=== PATIENT | female | born 1945 | race Caucasian/White ===

== ENCOUNTER → 2017-07-17 | Outpatient (CLI) | payer OTHER ==
--- NOTE | 2017-07-18 14:31 | MAMMOGRAPHY REPORT ---
BILATERAL DIGITAL SCREENING MAMMOGRAM WITH CAD: 07/17/2017 CLINICAL HISTORY: Routine screening. TECHNIQUE: Current study was also evaluated with a Computer Aided Detection (CAD) system. Bilateral CC and MLO views were obtained. COMPARISON: Comparison is made to exams dated: 07/15/2016 mammogram, 07/10/2015 mammogram, 07/06/2014 ma mmogram, 07/05/2013 mammogram, 01/05/2013 mammogram, and 06/30/2012 mammogram - [facility] er. BREAST COMPOSITION: There are scattered areas of fibroglandular density in both breasts. FINDINGS: No suspicious masses, calcifications, or areas of architectural distortion are noted in ei ther breast. There has been no significant interval change compared to prior exams. Fluctuating keith gn-appearing masses are again noted bilaterally, which are considered benign given the multiplicity a nd bilaterality and likely represent cysts, with cysts seen on prior ultrasound exams. IMPRESSION: ACR BI-RADS CATEGORY 2: BENIGN There is no mammographic evidence of malignancy. A 1 year screening mammogram is recommended. The pa tient will receive written notification of the results. Approximately 10% of breast cancers are not detected with mammography. A negative mammographic report should not delay biopsy if a clinically suggestive mass is present. Kathleen Neil M.D. ah/:07/17/2017 16:20:28 Mental Health Assistant: Teresa DE)(M), [facility] letter sent: Normal 1/2 BI-RADS Code: ACR BI-RADS Category 2: Benign
== END | disposition home or self-care (01) ==
LOC: C.MAMM 08:56
PROVIDERS: ATTEND Physician Assistant
DX: Z12.31 Encounter for screening mammogram for malignant neoplasm of breast (principal)

== ENCOUNTER → 2017-09-16 | Outpatient (CLI) | payer OTHER | END | disposition home or self-care (01) | LOC: C.MAMM 08:42 | PROVIDERS: ATTEND Physician Assistant | DX: E28.39 Other primary ovarian failure (principal); M85.80 Other specified disorders of bone density and structure, unspecified site ==

== ENCOUNTER → 2018-07-21 | Outpatient (CLI) | payer OTHER ==
--- NOTE | 2018-07-22 13:37 | MAMMOGRAPHY REPORT ---
BILATERAL DIGITAL SCREENING MAMMOGRAM TOMOSYNTHESIS WITH CAD: 07/21/2018 CLINICAL HISTORY: Routine screening. TECHNIQUE: The study was acquired using full field digital technology and interpreted from soft copy. Breast tomosynthesis in addition to standard 2D mammography was performed. Current study was also ev aluated with a Computer Aided Detection (CAD) system. COMPARISON: Comparison is made to exams dated: 07/17/2017 mammogram, 07/15/2016 mammogram, 07/10/2015 m ammogram, 07/06/2014 mammogram, 07/05/2013 mammogram, and 07/02/2012 ultrasound - [facility] ter. BREAST COMPOSITION: There are scattered areas of fibroglandular density in both breasts. FINDINGS: There is a stable faint grouping of punctate calcifications in the retroareolar posterior r ight breast, and fluctuating nodularity in the left upper outer quadrant. No suspicious spiculated or irregular mass, architectural distortion or cluster of new, suspicious microcalcifications is seen. IMPRESSION: ACR BI-RADS CATEGORY 1: NEGATIVE There is no mammographic evidence of malignancy. A 1 year screening mammogram is recommended.( 019) The patient will receive written notification of the results. Some breast cancers are not detected with mammography. A negative mammographic report should not mirella y biopsy if a clinically suggestive mass is present. Linn Jacob M.D. ay/:07/21/2018 15:06:18 Bench Assembler Battery: RT Hailey(R)(M), [facility] letter sent: Normal 1/2 BI-RADS Code: ACR BI-RADS Category 1: Negative
== END | disposition home or self-care (01) ==
LOC: C.MAMM 08:45
PROVIDERS: ATTEND Physician Assistant
DX: Z12.31 Encounter for screening mammogram for malignant neoplasm of breast (principal)

== ENCOUNTER 2022-05-30 06:20 | Observation (INO) ==
[2022-05-30] MEDS ORDERED: VANCOMYCIN HCL 1000MG/20ML VIAL ONE (07:05)
[2022-05-30] MEDS ORDERED: BUPIVACAINE 0.25% 30 ML VIAL ONE (07:05)
[2022-05-30] MEDS ORDERED: LIDOCAINE 1% LOCAL 20 ML VIAL ONE (07:05)
[2022-05-30] MEDS ORDERED: WATER, STERILE FOR INJ 10 ML VIAL ONE (07:05)
[2022-05-30] MEDS ORDERED: MIDAZOLAM HCL 5 MG/ML 1 ML VIAL ONE (07:30)
[2022-05-30] MEDS ORDERED: ceFAZolin 330 MG/ML 1 GM VIAL ONE (07:30)
[2022-05-30] MEDS ORDERED: fentaNYL citrate 100 MCG/2 ML VIAL ONE (07:30)
--- NOTE | 2022-05-30 08:15 | Pre Anesthesia Assessment ---
Date of Service May 30, 2022 Pre Sedation Assessment Vital Signs Temp Pulse Resp BP Pulse Ox 05/30/22 07:12 36.8 C 54 L 20 209/66 H 98 Cardiovascular + regular rhythm and + bradycardic Respiratory + respiratory effort normal Pre-Sedation Airway Assessment Smoking Status: Never smoker Hx Sleep Apnea: No Hx Difficult Intubation: No Short, Thick Neck: No Thyromental Distance: > or= 3.5 Finger Breadths Oral Cavity: + Dentures Mallampati Class: II ASA: ASA2 NPO Status Date of Last Intake of Fluids: 05/29/22 Time of Last Intake of Fluids: 19:00 Date of Last Intake of Solid Food: 05/29/22 Time of Last Intake of Solid Foods: 19:00 Procedure Planning Contraindications for Sedation: none Current Medications Reviewed: Yes Notes The planned sedation has been discussed with the patient. Informed Consent was obtained. I have identified the patient, determined the appropriateness of sedation and have assessed the patient immediately prior to the procedure. All medicine(s) and interventions are by my order.
--- NOTE | 2022-05-30 08:16 | History & Physical Bridge Note ---
Date of Service May 30, 2022 History & Physical Bridge Note I have examined the patient, reviewed the History & Physical and in the interval since the performance of the History & Physical I have noted the following changes of clinical significance: no changes noted
[2022-05-30] MEDS ORDERED: oxyCODONE HCL IR 5 MG TAB (IMMEDIATE RELEASE) PO PRN (09:33)
[2022-05-30] MEDS ORDERED: ACETAMINOPHEN 325 MG TAB PO PRN (09:33)
--- NOTE | 2022-05-30 09:33 | Electrophysiology Report ---
Date of Service May 30, 2022 Electrophysiology Procedure Electrophysiology Procedure Report Procedure performed: Implantation of dual-chamber permanent pacemaker with left bundle pacing lead Staff word processing operator: Ananda Kuhn MD Indication: The patient is a 76-year-old woman with a history of sick sinus syndrome. He has significant exercise intolerance and there was evidence of A-V dissociation on prior EKGs resulting in symptomatic bradycardia. He will be a good candidate for permanent pacemaker due to symptomatic nonreversible sinus node dysfunction. A dual-chamber device was selected as she is currently in sinus rhythm and wished to maintain AV synchrony. Procedure in detail: The patient was informed of the risks benefits and alternatives to the intended procedure and she wished to proceed. She was taken to the electrophysiology suite in a fasting state. A preoperative antibiotic had been administered. The patient was monitored electrocardiographically throughout today's procedure and conscious sedation was administered per protocol. The left upper pectoral area is prepped and draped in usual sterile fashion. This area was anesthetized using subcutaneous administration of a xylocaine solution. An incision was made at this site and carried down to the prepectoralis fascia using sharp dissection. Electrocautery was also employed for dissection as well as for hemostasis. A device pocket was fashioned tissues above the pectoralis muscle. Subsequent to this maneuver the left axillary vein was accessed using modified Seldinger technique. Sheath was placed over guidewire and used to advance a guiding catheter for mapping of the interventricular septum. Once an adequate site was found the septal pacing lead was advanced using active fixation. Adequate sensing and threshold parameters were obtained prior to removal of the guiding catheter and sheath. The proximal portion of lead was then sutured to the prepectoralis fascia using nonabsorbable suture. A second sheath was advanced over the remaining guidewire and used to facilitate passage of the right atrial lead to the right atrium under fluoroscopic guidance. Adequate sensing and threshold parameters were obtained prior to active fixation of this lead to the endocardial surface. The proximal portion of lead was then sutured the prepectoralis fascia using nonabsorbable suture. The device pocket was irrigated with antibiotic solution. The leads were then attached to the device. The device and leads were then placed in the pocket and pocket was closed in 3 layers of absorbable suture. Steri-Strips and sterile dressing were applied. The device was tested noninvasively prior to conclusion the procedure. The patient tolerated procedure well there no immediate complications. Equipment used: New pulse generator: Phytopathology Teacher [employer]. Model number: [id number] serial number [id number] Right atrial lead: Phytopathology Teacher Medtronic. Model number: [id number] serial number [id number] Right ventricular lead: Phytopathology Teacher Medtr[employer]. Model number: [id number] serial number [id number] Measured data: Right atrial lead: P waves measure 2.9 mV. Pacing threshold 0.25 V at 0.4 ms with a pacing impedance of 550 ohms Right ventricular lead: R waves measured 18 mV. Pacing threshold 0.7 V at 0.5 ms with a pacing impedance of 710 ohms Impression: Successful implantation of dual-chamber permanent pacemaker with left bundle pacing lead MN[employer] Electrophysiology codes Pacing Procedure 1: Pacin Insert/Replace Pacer A & V PG Moderate Sedation Codes Moderate Sedation Codes Procedure 1: Sedation/Anesthesia: 85177 Mod Sedation by the same physician;Init15 Min Child Age 5 & Up Procedure 2: Sedation/Anesthesia: 76008 Mod Sedation by the same physician; Ea [id number] Minutes
--- NOTE | 2022-05-30 09:33 | Post Anesthesia Assessment ---
Date of Service May 30, 2022 Post Sedation Assessment Vital Signs Temp Pulse Resp BP Pulse Ox 05/30/22 07:12 36.8 C 54 L 20 209/66 H 98 Recovery Score Activity: Moves 4 extremities Respiration: Deep Breath/Cough Circulation: +/-20% PreAnes Value Consciousness: Arouseable (by name) Oxygen Saturation: > 92% On Room Air Discharge Sedation Level of Care: Fast Track Phase II Post Sedation Plan On clinical assessment, the patient appears to have tolerated the sedation without complications. Patient is recovering as anticipated. Patient will continue to be monitored by nursing and may be discharged when sedation discharge criteria are met per below protocol. Upon Completions of procedure up to 15 minutes continue every 5 minute vital signs and the P.A.R. score; then discharge to a Phase I or Fast Track to Phase II per the following guidelines: * Discharge Patient to appropriate Phase II area if PAR is 8 or greater or return to pre- procedure baseline. The post - procedure orders will be as directed. * If PAR score is less than 8 or not return to pre-procedure baseline then patient will follow Phase I monitoring till PAR is reached for Phase II. The Phase I may be done in procedure room or may call to secure a Phase I area. * If naloxone or flumazenil are used for reversal, hold in Phase I for continued monitoring from when last reversal dose was given for a minimum of 60 minutes or longer pending the nurse and/or physician discretion of patient condition before discharge to Phase II. Please call the Sedation Physician to re-evaluate and complete post-note for discharge to Phase II area. Do NOT discharge from procedure sedation or Phase 1 until post- sedation evaluation note is complete by procedure /sedation MD Sedation Discharge Instructions to be given to the patient at discharge to home.
[2022-05-30] MEDS ORDERED: ceFAZolin 1000MG 1,000 MG/7.5 ML SYR IV ONE (17:00)
[2022-05-30] MEDS ORDERED: amLODIPine BESYLATE 5 MG TAB PO ONE (18:35)
[2022-05-31] MEDS ORDERED: LEVOTHYROXINE SODIUM 50 MCG TABLET PO SCH (06:30)
[2022-05-31] MEDS ORDERED: ASPIRIN 81 MG ECTAB PO SCH (09:00)
[2022-05-31] MEDS ORDERED: EZETIMIBE 10 MG TABLET PO SCH (09:00)
[2022-05-31] MEDS ORDERED: lisinopril 10 MG TAB PO SCH (09:00)
[2022-05-31] MEDS ORDERED: FENOFIBRATE NANOCRYSTALLIZED 48 MG TABLET PO SCH (09:00)
[2022-05-31] MEDS ORDERED: PANTOprazole 40 MG TAB PO SCH (09:00)
[2022-05-31] MEDS ORDERED: amLODIPine BESYLATE 5 MG TAB PO SCH (09:00)
[2022-05-31] MEDS ORDERED: OMEGA-3 (PURIFIED FISH OIL) 1 GM CAP PO SCH (09:00)
[2022-05-31] MEDS ORDERED: MELOXICAM 7.5 MG TAB PO SCH (09:00)
--- NOTE | 2022-05-31 10:05 | XRay Report ---
XR chest 2V PA/lateral HISTORY: 76 years-old Female pacemaker. r/o PTX. no lifting left arm status post placement of a left subclavian pacer COMPARISON: None TECHNIQUE: PA and lateral views of the chest FINDINGS: The cardiac silhouette is upper limits of normal in size. Left subclavian pacer. Atherosclerosis of t he aorta. There is no pneumothorax, pleural effusion, airspace consolidation or overt pulmonary edema . Degenerative changes of the shoulders and spine. Cholecystectomy. IMPRESSION: Status post placement of a left subclavian pacer. No postprocedural pneumothorax. ACT 112: Negative or not required by law. The above report was generated using voice recognition software. It may contain grammatical, syntax o r spelling errors. Electronically signed by: Mike Larson M.D. 05/31/2022 10:04 AM
== END 2022-05-31 11:50 | disposition home or self-care (01) ==
LOC: EP 06:20 → 2S 06:20

== ENCOUNTER 2023-09-30 11:16 | Inpatient (IN) ==
[2023-09-30] MEDS ORDERED: SODIUM CHLORIDE 0.9% 500 ML IV ONE (12:47)
--- NOTE | 2023-09-30 12:48 | Emergency Department Note ---
ED Visit Note Physician Evaluation Note: Patient was seen in conjunction with the midlevel provider. Please see the midlevel provider note for full details of the patient's visit. I have personally evaluated and examined this patient. Patient presented to the ED with blisters in the oral cavity as well as a petechial appearing rash to the bilateral lower extremities and upper back. This is in the setting of recently starting Bactrim. Lab work was obtained and patient has a platelet count of 0. Hemoglobin is normal. Patient has not had any active bleeding. 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 Patient was started on IV steroids and IVIG. Otology was consulted by the physician plastic surgery assistant in regards to the plan of the patient's care, allergy and immunology was also consulted as the patient has recently been on Bactrim there is suspicion for drug reaction. Patient remained stable while here in the ED, she was started on the aforementioned interventions and was admitted to the hospitalist service for further management. I agree with assessment and plan of XAVIER Carlton DO .
--- NOTE | 2023-09-30 12:54 | Emergency Department Note ---
History of Present Illness General Chief complaint: Edema To Extremity Stated complaint: SWOLLEN FOOT; BLISTERS IN MOUTH Time Seen by Provider: 09/30/23 12:14 History of Present Illness 78-year-old female with past medical history significant for dementia, hypertension, hyperlipidemia, hypothyroidism who presents to the emergency department accompanied by for evaluation of rash. Patient states she was seen by her PCP last week for left great toe pain and swelling. She had x- rays of the toe performed which were unremarkable. She was placed on Bactrim for presumed toenail infection and started on 09/23/2023. She states that her toe pain has started to improve but she is noticed a rash on her bilateral legs. She is not exactly sure when the rash started but it has been present for the last few days. It is not itchy or painful. She also notes blisters within her mouth. She denies difficulty with swallowing, pain with swallowing, shortness of breath, chest pain, fever/chills, nausea or vomiting. She has not noticed the rash anywhere else. She does not think she has ever been on Bactrim in the past. No known allergies. No recent insect bites. No other changes to medications or new medications other than the Bactrim. She has not taken anything for her symptoms Home Medications Medication Instructions Recorded Confirmed Type ezetimibe 10 mg tablet 10 mg PO HS 05/30/22 09/30/23 History levothyroxine 50 mcg tablet 50 mcg PO DAILYBB 05/30/22 09/30/23 History lisinopril 10 mg tablet 10 mg PO QAM 05/30/22 09/30/23 History meloxicam 7.5 mg tablet 7.5 mg PO QAM 05/30/22 09/30/23 History omeprazole 20 mg capsule,delayed 20 mg PO QAM 05/30/22 09/30/23 History release solifenacin 5 mg tablet 5 mg PO QAM 05/30/22 09/30/23 History donepezil 5 mg tablet 5 mg PO HS #30 tabs 01/03/23 09/30/23 Rx allopurinol 100 mg tablet 200 mg PO QAM 09/30/23 09/30/23 History amlodipine 10 mg tablet 10 mg PO QAM 09/30/23 09/30/23 History aspirin 81 mg tablet,delayed 81 mg PO QAM 09/30/23 09/30/23 History release cyanocobalamin (vitamin B-12) 1,000 mcg PO QAM 09/30/23 09/30/23 History 1,000 mcg tablet (Vitamin B-12) omega 4-[id number]-zwd-fish oil 1,200 mg 1 cap PO QAM 09/30/23 09/30/23 History (144 mg-216 mg) capsule (Fish Oil) Allergies Allergy/AdvReac Type Severity Reaction Status Date / Time sulfamethoxazole AdvReac Severe Rash Verified 09/30/23 16:17 [From Bactrim] trimethoprim [From Bactrim] AdvReac Severe Rash Verified 09/30/23 16:17 Past Med/Surg History Medical History H/O Mohs micrographic surgery for skin cancer Surgical History S/P cataract surgery S/P cholecystectomy S/P colonoscopy S/P hysterectomy Family History Father Cancer Hypertension Mother Cancer Hypertension Social History Smoking Status: Never smoker Hx Alcohol Use: Yes Hx Substance Use: No Preferred Language: Congolese Communication Ability: Effective Physician President Required: No Beliefs That Will Affect Care: None Current Living Situation: Spouse Feels Safe at Home: Yes Assistive Devices: None Physical Exam Vital Signs Vital Signs - 24 hr 09/30/23 11:21 09/30/23 13:50 Temperature 37.0 C Temperature Source Temporal Artery Scan Pulse Rate 77 Pulse Rate [Apical] 61 Pulse Strength [Apical] Normal Respiratory Rate 18 17 Respiratory Effort / Characteristics Non-Labored Spontaneous Respiratory Depth Normal Respiratory Pattern Regular Blood Pressure 155/106 H Blood Pressure [Left Arm] 127/95 Blood Pressure Mean 122 Blood Pressure Mean [Left Arm] 105 Pulse Oximetry 95 94 Oxygen Delivery Method Room Air Sepsis Recent Fever Within 48 Hours No Sepsis New/Unexplained Change in Mental Status N/A Sepsis Action Taken by Nursing No Action Required Constitutional: alert and oriented x3. no acute distress. nontoxic HEENT: normocephalic, atraumatic. normal conjunctiva.PERRLA. EOM's grossly intact. TMs pearly mccann without effusion. Hemorrhagic blisters involving the oral mucosa/gums and tongue. The posterior pharynx appears to be spared. Tonsils are nonenlarged without exudate. Neck: neck is supple, nontender. Respiratory: lungs are clear to auscultation without wheezes, rhonchi, or rales bilaterally. equal chest rise. normal respiratory effort, no accessory muscle use. Cardiovascular: normal heart sounds without murmur. regular rate and rhythm. GI: abdomen is soft, nontender. No palpable masses. No rebound tenderness or guarding. Skin: Petechial type rash to the bilateral lower legs as well as an erythematous macular rash of the torso. Arms appeared spared as well as the face. Hemorrhagic blisters as described above within the oral mucosa. No skin sloughing or blistering to the extremities/torso. No evidence for infection. MSK: Moves all 4 extremities spontaneously. No bony tenderness Peripheral vascular: extremities warm and well perfused with palpable pulses. Psych:appropriate mood and affect. Course Administered Medications Discontinued Medications Dexamethasone (Dexamethasone Sod Inj 4 Mg/Ml Vial) 40 mg IV NOW STA Stop: 09/30/23 13:58 Last Admin: 09/30/23 14:26 Dose: 40 mg Documented By: LORE Dextrose (Dextrose 50% 50 Ml Syringe) 50 ml IV NOW STA Stop: 09/30/23 14:42 Last Admin: 09/30/23 15:56 Dose: 50 ml Documented By: LORE Sodium Chloride (Nss) 500 mls @ 999 mls/hr IV .Q31M ONE Stop: 09/30/23 13:17 Last Admin: 09/30/23 13:09 Dose: 999 mls/hr Documented By: LORE Calcium Gluconate 1,000 mg/ (Sodium Chloride) 60 mls @ 240 mls/hr IV NOW ONE Stop: 09/30/23 14:55 Last Admin: 09/30/23 15:23 Dose: 240 mls/hr Documented By: LORE Insulin Human Regular 10 units (/ Syringe) 9.9 mls @ 3 mls/sec IV ONE STA Stop: 09/30/23 14:42 Last Admin: 09/30/23 15:56 Dose: 3 mls/sec Documented By: LORE Co-signed By: ASW Insulin Human Regular (Novolin-R Insulin Per Unit Charge) Confirm Administered Dose 10 units .ROUTE .STK-MED ONE Stop: 09/30/23 15:55 Last Admin: 09/30/23 16:00 Dose: Not Given Documented By: KMO Medical Decision Making Differential Diagnosis Contact dermatitis, viral exanthem, urticaria, allergic reaction, Gaona- Bhavik syndrome, toxic epidermal necrolysis, erythema multiforme, cellulitis, scabies, HSV, varicella, zoster, eczema, staph scalded skin syndrome, fungal infection, as well as other pathologies. Laboratory Data Attestation: I reviewed the patient's lab results. 09/30/23 13:00 09/30/23 13:00 Lab Results 09/30/23 09/30/23 09/30/23 Range/Units 13:00 13:00 13:10 WBC 5.69 (4.8-10.8) K/ul RBC 3.86 L (4.20-5.40) M/uL Hgb 12.3 (12.0-16.0) g/dl Hct 37.6 (37.0-47.0) % MCV 97.4 (80.0-100.0) fL MCH 31.9 (25.0-34.0) pg MCHC 32.7 (32.0-36.0) g/dL RDW Std Deviation 51.3 H (36.4-46.3) fL RDW Coeff of Alexandra 14.4 (11.5-14.5) % Plt Count 0 L* (130-400) K/uL Immature Gran % (Auto) 0.7 % Neut % (Auto) 73.4 % Lymph % (Auto) 16.2 % [place] % (Auto) 7.7 % Eos % (Auto) 1.6 % Baso % (Auto) 0.4 % Neut # (Auto) 4.18 (1.40-6.50) K/uL Lymph # (Auto) 0.92 L (1.20-3.40) K/uL [place] # (Auto) 0.44 (0.11-0.59) K/uL Eos # (Auto) 0.09 (0.00-0.50) K/uL Baso # (Auto) 0.02 (0.00-0.20) K/uL Immature Gran # (Auto) 0.04 (0.01-0.20) K/uL Platelet Estimate Signific. Decreased L (Normal) Peripher Smr Path Cons Sodium 134 L (136-145) mmol/L Potassium 6.2 H* (3.5-5.1) mmol/L Chloride 103 (98-107) mmol/L Carbon Dioxide 24 (21-32) mmol/L Anion Gap 7 (3-11) BUN 28 H (6-23) mg/dl Creatinine 1.72 H (0.6-1.2) mg/dl Est Cr Clr Drug Dosing 23.4 ml/min Est GFR ( Amer) 32.0 ml/min Est GFR (Non-Af Amer) 27.6 ml/min BUN/Creatinine Ratio 16.3 (10-20) Glucose 101 H (70-99(Fasting)) mg/dl Calcium 9.3 (8.6-10.3) mg/dl Total Bilirubin 0.4 (0.2-1.0) mg/dl AST 26 (13-39) U/L ALT 22 (7-52) U/L Alkaline Phosphatase 96 (34-104) U/L Lactate Dehydrogenase 183 (86-244) U/L Total Protein 7.4 (6.0-8.3) gm/dl Albumin 4.3 (3.4-5.0) gm/dl Globulin 3.1 (2.5-4.0) gm/dl Albumin/Globulin Ratio 1.4 (0.9-2) Vitamin B12 (180-914) pg/ml Folate (>5.38) ng/ml Urine Color Yellow Urine Appearance Turbid A (Clear) Urine pH 5.5 (4.5-7.5) Ur Specific [place] 1.015 (1.000-1.030) Urine Protein Negative (Negative) Urine Glucose (UA) Negative (Negative) Urine Ketones Negative (Negative) Urine Blood 2+ H (Negative) Urine Nitrite Negative (Negative) Urine Bilirubin Negative (Negative) Urine Urobilinogen Negative (Negative) Ur Leukocyte Esterase Negative (Negative) Urine WBC (Auto) 1-5 (0-5) /hpf Urine RBC (Auto) 5-10 H (0-4) /hpf U Hyaline Cast (Auto) 1-5 (0-5) /lpf U Epithel Cells (Auto) >30 H (0-5) /lpf Urine Bacteria (Auto) Negative (Negative) 09/30/23 Range/Units 14:45 WBC (4.8-10.8) K/ul RBC (4.20-5.40) M/uL Hgb (12.0-16.0) g/dl Hct (37.0-47.0) % MCV (80.0-100.0) fL MCH (25.0-34.0) pg MCHC (32.0-36.0) g/dL RDW Std Deviation (36.4-46.3) fL RDW Coeff of Alexandra (11.5-14.5) % Plt Count (130-400) K/uL Immature Gran % (Auto) % Neut % (Auto) % Lymph % (Auto) % [place] % (Auto) % Eos % (Auto) % Baso % (Auto) % Neut # (Auto) (1.40-6.50) K/uL Lymph # (Auto) (1.20-3.40) K/uL [place] # (Auto) (0.11-0.59) K/uL Eos # (Auto) (0.00-0.50) K/uL Baso # (Auto) (0.00-0.20) K/uL Immature Gran # (Auto) (0.01-0.20) K/uL Platelet Estimate (Normal) Peripher Smr Path Cons Sodium (136-145) mmol/L Potassium (3.5-5.1) mmol/L Chloride (98-107) mmol/L Carbon Dioxide (21-32) mmol/L Anion Gap (3-11) BUN (6-23) mg/dl Creatinine (0.6-1.2) mg/dl Est Cr Clr Drug Dosing ml/min Est GFR ( Amer) ml/min Est GFR (Non-Af Amer) ml/min BUN/Creatinine Ratio (10-20) Glucose (70-99(Fasting)) mg/dl Calcium (8.6-10.3) mg/dl Total Bilirubin (0.2-1.0) mg/dl AST (13-39) U/L ALT (7-52) U/L Alkaline Phosphatase (34-104) U/L Lactate Dehydrogenase (86-244) U/L Total Protein (6.0-8.3) gm/dl Albumin (3.4-5.0) gm/dl Globulin (2.5-4.0) gm/dl Albumin/Globulin Ratio (0.9-2) Vitamin B12 > 1500 H (180-914) pg/ml Folate 9.93 (>5.38) ng/ml Urine Color Urine Appearance (Clear) Urine pH (4.5-7.5) Ur Specific [place] (1.000-1.030) Urine Protein (Negative) Urine Glucose (UA) (Negative) Urine Ketones (Negative) Urine Blood (Negative) Urine Nitrite (Negative) Urine Bilirubin (Negative) Urine Urobilinogen (Negative) Ur Leukocyte Esterase (Negative) Urine WBC (Auto) (0-5) /hpf Urine RBC (Auto) (0-4) /hpf U Hyaline Cast (Auto) (0-5) /lpf U Epithel Cells (Auto) (0-5) /lpf Urine Bacteria (Auto) (Negative) MDM Narrative 78-year-old female who presents to the emergency department for evaluation of rash and blisters in her mouth. Review of pertinent visits and past medical h istory performed. Vital signs in ED stable, afebrile. Patient was seen and evaluated as above. She was started on Bactrim on 09/23 for presumed toe infection by her PCP. She notes developing a rash in her lower legs as well as blisters within her mouth over the last few days. She is a relatively poor historian with her history of dementia and is unsure exactly when the rash developed. There is no pruritus or pain associated with the rash. On exam, she is well-appearing in no acute distress. Lower legs demonstrate a diffuse petechial rash without evidence for infection or skin sloughing. There is an erythematous macular rash involving the torso as well. Within the oral mucosa there are multiple hemorrhagic blisters involving the gums and tongue. The posterior pharynx does appear to be spared. She is in no acute respiratory distress and maintaining normal O2 saturations on room air. No evidence for angioedema. No exam findings to demonstrate secondary bacterial infection. Given presentation and concerns for Angel Bhavik syndrome, IV access was established and basic labs were obtained. CBC demonstrates no leukocytosis or acute anemia. She does have severe thrombocytopenia with a platelet count of 0. No bandemia. CMP demonstrates a sodium of 134 and a potassium of 6.2. No other electrolyte abnormalities. Renal function appears at baseline at 1.72. LFTs within normal limits. EKG demonstrates atrial paced sinus rhythm without evidence of ischemic changes. I did discuss the case with ED attending, Dr. Noel. 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 Medina. He of course recommended discontinuation of Bactrim and supportive care for SJS as well as admission to the hospital for close observation. If she were to demonstrate eosinophilia on her labs steroids would be beneficial however without this they would likely be of no benefit. She will need close monitoring of her kidney and liver function and if these were to worsen she may require transfer to a tertiary center. Pr esentation at this time is not concerning for TENS. Dr. Medina will be happy to see patient in consultation. I did also discuss the case with hematology/oncology, Dr. Guzmán for concerns of idiopathic thrombocytopenia likely drug-induced. He recommended high-dose Decadron 40 mg IV for 4 days in conjunction with the PPI for GI protection. In addition, he advised 1 g/kg IVIG infused over a 10 to 12-hour period with monitor of platelet response. He will also see patient in consultation. He did recommend obtaining hepatitis/HIV panel to rule out secondary causes of thrombocytopenia. HIV testing consent form was obtained. Labs were sent. Additionally folic acid and vitamin B12 levels were obtained and a peripheral smear at his request. Patient was reassessed on multiple occasions throughout the ED stay. She remained stable with no new concerns. She was hydrated with 500 mL IV fluids as well as given her first dose of IV 40 mg Decadron and IVIG in the emergency department. She declined needing anything for pain or nausea. She was updated on all exam findings and test results as well as recommendations from allergy/immunology and hematology/oncology. 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 Case was discussed with hospitalist physician laboratory chemical assistant, Merrlil Burt PA-C, who graciously excepted patient to their service for further management. Patient was admitted in stable condition. Impression & Plan Acute idiopathic thrombocytopenic purpura, LEROY (acute kidney injury), Acute hyperkalemia Discharge Plan Visit Data Chief Complaint: Edema To Extremity Stated Complaint: SWOLLEN FOOT; BLISTERS IN MOUTH ED Provider: Maninder Noel ED Midlevel Provider: Virginie Neal Discharge Problem: Acute idiopathic thrombocytopenic purpura, LEROY (acute kidney injury), Acute hyp erkalemia Patient Disposition: Admitted As Inpatient Discharge Instructions Interventions: ED Discharge Assessment Last Done: 09/30/23 15:49
[2023-09-30 13:32] LABS: Appearance Urine Turbid (Clear); Bacteria Urine Automated Negative (Negative); Bilirubin Urine Negative (Negative); Blood Urine 2+ (Negative); Color Urine Yellow; Epithelial Cell Urine Auto >30 /lpf (0-5); Glucose Urine UA Negative (Negative); Ketones Urine Negative (Negative); Leukocyte Esterase Urine Negative (Negative); Nitrite Urine Negative (Negative); Protein Urine Negative (Negative); Specific Gravity Urine 1.015 (1.000-1.030); Urobilinogen Urine Negative (Negative); pH Urine 5.5 (4.5-7.5)
[2023-09-30 13:38] LABS: Albumin Globulin Ratio 1.4 (0.9-2); Albumin Level 4.3 gm/dl (3.4-5.0); BUN Creatinine Ratio 16.3 (10-20); Bilirubin,Total 0.4 mg/dl (0.2-1.0); Calcium 9.3 mg/dl (8.6-10.3); Creatinine Clr Calc Pharmacy 23.4 ml/min; Est GFR (Non-African American) 27.6 ml/min; Globulin 3.1 gm/dl (2.5-4.0); Potassium 6.2 mmol/L (3.5-5.1); Total Protein 7.4 gm/dl (6.0-8.3)
[2023-09-30 13:51] LABS: Hematocrit (blood only) 37.6 % (37.0-47.0); Hemoglobin 12.3 g/dl (12.0-16.0); Mean Corpuscular Hemoglobin 31.9 pg (25.0-34.0); Mean Corpuscular Hgb Conc 32.7 g/dL (32.0-36.0); Mean Corpuscular Volume 97.4 fL (80.0-100.0); Platelet Count 0 K/uL (130-400); RDW Coefficient of Variation 14.4 % (11.5-14.5); RDW Standard Deviation 51.3 fL (36.4-46.3); Red Blood Count 3.86 M/uL (4.20-5.40); White Blood Count 5.69 K/ul (4.8-10.8)
[2023-09-30 13:52] LABS: Basophils # (auto) 0.02 K/uL (0.00-0.20); Basophils % (auto) 0.4 %; Eosinophils # (auto) 0.09 K/uL (0.00-0.50); Eosinophils % (auto) 1.6 %; Immature Granulocytes # (auto) 0.04 K/uL (0.01-0.20); Immature Granulocytes % (auto) 0.7 %; Lymphocytes # (auto) 0.92 K/uL (1.20-3.40); Lymphocytes % (auto) 16.2 %; Monocytes # (auto) 0.44 K/uL (0.11-0.59); Monocytes % (auto) 7.7 %; Neutrophils # (auto) 4.18 K/uL (1.40-6.50); Neutrophils % (auto) 73.4 %; Platelet Estimate Signific. Decreased (Normal)
[2023-09-30] MEDS ORDERED: DEXAMETHASONE SOD INJ 4 MG/ML VIAL IV STA (13:57)
[2023-09-30] MEDS ORDERED: IMMUNE GLOBULIN (HUMAN) SOLN IV ONE (14:18)
[2023-09-30] MEDS ORDERED: GAMUNEX C IV SCH ×2 (14:30→15:30)
[2023-09-30] MEDS ORDERED: INSULIN HUMAN REGULAR PER UNIT 10 UNITS in SYRINGE 9.9 ML IV STA (14:41)
[2023-09-30] MEDS ORDERED: CALCIUM GLUCONATE 10% 1,000 MG in SODIUM CHLOR 0.9% MINI-B 50 ML IV ONE (14:41)
[2023-09-30] MEDS ORDERED: DEXTROSE 50% 50 ML SYRINGE IV STA (14:41)
[2023-09-30] MEDS ORDERED: STAT IV/IM STA (14:41)
--- NOTE | 2023-09-30 14:47 | History & Physical Report ---
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 Less likely at this time that the Bactrim as the cause at this time as she is without a rash -Cannot rule out SJS at this time as she has mucosal involvement, but lower on the differential for now -She is currently stable and without signs of acute bleeding -The ED has started the following treatments as recommended by allergy immunology and hematology: >40 mg IV dexamethasone daily for 5 days, then can convert to PO glucocorticoids >Will start IVIG per Pharmacy protocol which will run over 6 hours >Start daily Protonix to reduce risk of gastric ulcers >Will give empiric Folic Acid and B12 on admission, folate and B12 levels have been obtained in the ED >Repeat labs after IVIG is complete tonight to monitor for response >Hematology will review am labs to determine if additional IVIG will be needed -Hold any transfusions at this time -Hold all anticoagulants/antiplatelets until hematology recommends restarting; holding home aspirin at this time -Will obtain blood consent with type and screen for now -Will obtain STAT PT/INT, aptt, and LDH -Monitor intake/output q6h -Prn magic swizzle for mouth pain -Will monitor am CBC, CMP, Mag, PT/INR, aptt, LDH (2) Hyperkalemia: Plan: -Potassium elevated at 6.2 on arrival -No acute T-wave changes -Likely due to her LEROY but will monitor PT/INR, aptt, and LDH for signs of hemolysis -Given 1gm IV calcium gluconate, 10 units IV insulin, and am amp of dextrose on admission -Given 500 mL NSS in the ED -Continue to monitor on tele, will follow 4 hour repeat potassium at 1700, if still elevated will add an oral regimen (3) Toe infection: Plan: -Patient with left great toe infection since 09/21 -Was seen by PCP on 09/23, xray at that time was negative for osseous involvement -Started on Bactrim on 09/23; hold -Will obtain Repeat xray to rule out progression to osseous involvement -Will switch her to ceftriaxone for now as we are unsure if she has SJS at this time and Cephalosporins are less likely to exacerbate her condition -Continue to monitor for improvement (4) LEROY (acute kidney injury): Plan: -Cr at 1.7 today, baseline is near 1.3 -Likely due to dehydration and recent Bactrim use -Hold nephrotoxic agents for now -Will hold lisinopril for now -Follow am renal function and electrolytes (5) Dementia: Plan: -Continue Donepezil (6) Hypothyroidism: Plan: -Conitnue levothyroxine (7) HTN (hypertension): Plan: -Stable -Hold lisinopril with possible LEROY -Can continue amlodipine for now (8) Gout: Plan: -Conitnue allopurinol (9) GERD (gastroesophageal reflux disease): Plan: -IV Protonix daily while being treated with steroids Plan The patient was discussed with Dr. Ojeda at the time of the admission History of Present Illness Chief Complaint: Easy bleeding, sores in mouth Primary Care Provider: Cha Childers PA-C Regina is an 78 year old female with a PMH significant for Dementia, Gout, HTN, hypothyroidism, hyperlipidemia, sinus node dysfunction S/P dual chamber pacemaker placement who presented to the [facility] ED on 09/30 with complaints of mouth sores and easy bruising which started over the weekend. Per the ED, the patient was recently started on Bactrim by her PCP for cellulitis of the toe. Since then she has been developing mouth sores, a bloody nose when blowing her nose, and a BL LE rash. She remained stable in the ED. Labs were significant for a platelet count of 0, lymphocyte count of 0.92 but otherwise stable CBC, cr of 1.72 (baseline is near 1.3), potassium of 6.2, sodium of 134, and UA with turbid urine, 2+ blood, 5-10, and > 30 epithelial cells. Heme/Onc and allergy/immunology were contacted by the ED to assist with evaluation and treatment. At this time the patient was given 40 mg IV dexamethasone and will be started on IVIG shortly. At this time the patient has been deemed stable to stay at our facility from the perspective of allergy/immunology and heme/onc. At the time of the exam the patient was sitting in bed in no acute distress with her sitting bedside, history was obtained from both. The patient had been in her normal state of health when they went to a wedding on 09/19. She states that she worse new shoes that cause a blister/sore on the medial aspect of her left great toe. She was seen by her on 09/23. Xray of the great left toe on 09/23 showed soft tissue swelling but was negative for osseous involvement. She was started on a 10 day course of Bactrim on 09/23. Yesterday the patient started to develop sores on the mucus membranes of her mouth along with bleeding while blowing her nose and petechiae on her BL legs, which she noticed this am. She denies recent fever, chills, SOB, chest pain, abd pain, nausea, vomiting, diarrhea, dysuria, hematuria, melena, bright blood in her stool, LE swelling, and recent trauma. We discussed code status, she is a full code and would want her and daughter to make medical decisions for her is she cannot make them herself. Please refer to Dr. Ojeda's attestation for any changes to the treatment plan Allergies Allergy/AdvReac Type Severity Reaction Status Date / Time sulfamethoxazole AdvReac Severe Rash Verified 09/30/23 16:17 [From Bactrim] trimethoprim [From Bactrim] AdvReac Severe Rash Verified 09/30/23 16:17 Home Medications Medication Instructions Recorded Confirmed Type ezetimibe 10 mg tablet 10 mg PO HS 05/30/22 09/30/23 History levothyroxine 50 mcg tablet 50 mcg PO DAILYBB 05/30/22 09/30/23 History lisinopril 10 mg tablet 10 mg PO QAM 05/30/22 09/30/23 History meloxicam 7.5 mg tablet 7.5 mg PO QAM 05/30/22 09/30/23 History omeprazole 20 mg capsule,delayed 20 mg PO QAM 05/30/22 09/30/23 History release solifenacin 5 mg tablet 5 mg PO QAM 05/30/22 09/30/23 History donepezil 5 mg tablet 5 mg PO HS #30 tabs 01/03/23 09/30/23 Rx allopurinol 100 mg tablet 200 mg PO QAM 09/30/23 09/30/23 History amlodipine 10 mg tablet 10 mg PO QAM 09/30/23 09/30/23 History aspirin 81 mg tablet,delayed 81 mg PO QAM 09/30/23 09/30/23 History release cyanocobalamin (vitamin B-12) 1,000 mcg PO QAM 09/30/23 09/30/23 History 1,000 mcg tablet (Vitamin B-12) omega 6-eig-rgv-fish oil 1,200 mg 1 cap PO QAM 09/30/23 09/30/23 History (144 mg-216 mg) capsule (Fish Oil) Past Med/Surg History Medical History H/O Mohs micrographic surgery for skin cancer Surgical History S/P cataract surgery S/P cholecystectomy S/P colonoscopy S/P hysterectomy Family History Father Cancer Hypertension Mother Cancer Hypertension Social History Smoking Status: Never smoker Hx Alcohol Use: Yes Hx Substance Use: No Preferred Language: Gibraltarian Communication Ability: Effective Wireline Operator Required: No Beliefs That Will Affect Care: None Current Living Situation: Spouse Feels Safe at Home: Yes Assistive Devices: None Physical Exam Physical Exam: Physical Exam: General: In no acute distress, stated age, well-nourished, good hygiene, non- toxic appearing HEENT: Normocephalic, atraumatic, no scleral icterus, pupils around round, symmetrical, and reactive to light, patient with dry mucus membranes and scattered sores on the mucus membranes of the mouth with signs of recent bleeding but no acute bleeding at this time , trachea midline, no thyromegaly Chest/Pulm: No respiratory distress, symmetrical chest expansion, clear breath sounds throughout Cardiac: RRR, no murmurs noted Abdomen: Negative for ascites and bruising, normoactive bowel sounds, soft, non-tender to palpation throughout Musculoskeletal: Patient with minimally swollen left great toe without signs of drainage, darker areas near the medial aspect of the left great toe wound, patient with intact motor function in the BL feet, no other acute abnormalities noted Extremities: Radial, dorsalis pedis, and posterior tibial pulses are intact and symmetrical, no edema noted in the BL LE's Skin: Patient with petechiae over the BL LE's without other signs of bleeding/hemorrhage Neuro: Alert and oriented to person, place, month, no focal defects, CN II- XII tested and intact, no tremors noted Psych: No acute distress, pleasantly confused at times, calm and cooperative during the exam Results & Data Results & Data Vital Signs (Past 12 Hours) Vital Signs Temp Pulse Resp BP Pulse Ox 09/30/23 11:21 37.0 C 77 18 155/106 H 95 Laboratory Results Abnormal lab results 09/30/23 09/30/23 09/30/23 Range/Units 13:00 13:00 13:10 RBC 3.86 L (4.20-5.40) M/uL RDW Std Deviation 51.3 H (36.4-46.3) fL Plt Count 0 L* (130-400) K/uL Lymph # (Auto) 0.92 L (1.20-3.40) K/uL Platelet Estimate Signific. Decreased L (Normal) Sodium 134 L (136-145) mmol/L Potassium 6.2 H* (3.5-5.1) mmol/L BUN 28 H (6-23) mg/dl Creatinine 1.72 H (0.6-1.2) mg/dl Glucose 101 H (70-99(Fasting)) mg/dl Urine Appearance Turbid A (Clear) Urine Blood 2+ H (Negative) Urine RBC (Auto) 5-10 H (0-4) /hpf U Epithel Cells (Auto) >30 H (0-5) /lpf ECG Additional Comments: Atrial-paced rhythm with prolonged AV conduction Left axis deviation Septal infarct , age undetermined Abnormal ECG No previous ECGs available Code Status & VTE Plan Code Status Full code VTE Prophylaxis Plan VTE Prophylaxis will be ordered: Yes Supervising Physician Co-Signing Physician Notes Patient seen and examined, chart reviewed, case discussed with Merrill Burt PA-C and I agree with the assessment and plan as above except as otherwise noted Labs and images reviewed Regina is an 78-year-old female with a history of GERD, recent toe infection started on Bactrim who presents with hyperkalemia, petechiae, and a platelet count of 0. On exam she has bilateral petechiae of the lower extremities. Left great toe is without warmth/tenderness, but has an area of ulceration and surrounding slight erythema. Patient has a right subglossal small hematoma/blood blister, does not show any ulcerations, sloughing, or mucosal erosions. She does have some blood at the gumline superiorly bilaterally. Suspect that patient has ITP, and this does not represent SJS although this cannot be completely excluded at this time. Peripheral smear does not show any evidence of MDS/leukemia. she has had recent Bactrim use, discontinued added to allergy list. May continue Rocephin for hallux cellulitis. Patient does have an acute platelet count of 0. Case was reviewed with allergy/hematology. She has been started on dexamethasone and IVIG therapy, continue Will trend CBC after IVIG infused. No indication for transfusion currently and hemoglobin is normal. Follow clinically for bleeding, transfusion threshold 7.0 or acutely symptomatic from bleeding. Patient has a type and screen on file. Coags ordered on admission and pending. Patient is with hyperkalemia and LEROY following Bactrim use, volume expanded with NSS. Urine is light yellow and without casts not suggestive of ATN. Will trend BMP. She has acute hyperkalemia, calcium given, insulin/D50 given, and will trend BMP every 4 hours following volume expansion. If persistently elevated or rising add PT room air. She is not anuric. I agree with assessment and management as above. PG Care Time/CCT Total # of Minutes Spent Total Time Spent with Patient: Total time spent is greater than 50% in coordination of care (as documented) at patient's floor/unit and/or counseling patient: C[place] [address] INT INP/OBS CARE 3/75MIN Patient Type Established Medical Decision Making High Complexity Diagnoses Thrombocytopenia D69.6 Hyperkalemia E87.5 Toe infection L08.9 LEROY (acute kidney injury) N17.9 Dementia F03.90 Hypothyroidism E03.9 HTN (hypertension) I10 Gout M10.9 GERD (gastroesophageal reflux disease) K21.9
[2023-09-30] MEDS ORDERED: cefTRIAXone SODIUM 2,000 MG in DEXTROSE 5 % MINI-B 50 ML IV STA (15:31)
[2023-09-30] MEDS ORDERED: PANTOprazole 40 MG in SYRINGE 0 ML IV ONE (15:45)
[2023-09-30] MEDS ORDERED: NovoLIN-R INSULIN PER UNIT CHARGE ONE (15:54)
[2023-09-30] MEDS ORDERED: FIRST - Mouthwash BLM 119 ML PO PRN (15:57)
[2023-09-30] MEDS: Octagam 10% IVIG 5 gram bottle IV SCH (16:01)
[2023-09-30 16:13] LABS: Folate (Folic Acid),Ser orPlas 9.93 ng/ml (>5.38)
[2023-09-30 16:15] LABS: Vitamin B12 > 1500 pg/ml (180-914)
--- NOTE | 2023-09-30 16:27 | XRay Report ---
XR toe(s) LT min 2V CLINICAL HISTORY: left great toe infection TECHNIQUE: 3 views of the left first digit were obtained. Comparison: None available at the time of this dictation. FINDINGS: There is no evidence of erosive change to suggest osteomyelitis. Joint spaces are well-preserved. Sof t tissue swelling is seen about the digit. IMPRESSION: Soft tissue swelling without underlying erosive change to suggest osteomyelitis. ACT 112: Negative or not required by law. Electronically signed by: Sai Johnson M.D. 09/30/2023 4:25 PM
[2023-09-30] MEDS ORDERED: FOLIC ACID 1 MG TAB PO STA (16:35)
[2023-09-30] MEDS: Octagam 10% IVIG 20 gram bottle IV SCH ×2 (17:01→21:29)
[2023-09-30 17:38] LABS: Partial Thromboplastin Time 29.1 Seconds (21.0-31.0); Prothrombin Time 10.9 Seconds (9.0-12.0)
[2023-09-30] MEDS: EZETIMIBE 10 MG TAB PO SCH (19:56)
[2023-09-30] MEDS: DONEPEZIL HCL 5 MG TAB PO SCH (19:56)
[2023-09-30 23:19] LABS: Hematocrit (blood only) 29.5 % (37.0-47.0); Hemoglobin 9.8 g/dl (12.0-16.0); Mean Corpuscular Hemoglobin 31.8 pg (25.0-34.0); Mean Corpuscular Hgb Conc 33.2 g/dL (32.0-36.0); Mean Corpuscular Volume 95.8 fL (80.0-100.0); Platelet Count 0 K/uL (130-400); RDW Coefficient of Variation 14.2 % (11.5-14.5); RDW Standard Deviation 49.4 fL (36.4-46.3); Red Blood Count 3.08 M/uL (4.20-5.40); White Blood Count 2.03 K/ul (4.8-10.8)
[2023-09-30 23:20] LABS: Immature Granulocytes # (auto) 0.01 K/uL (0.01-0.20); Immature Granulocytes % (auto) 0.5 %; Lymphocytes % (auto) 24.6 %; Monocytes # (auto) 0.05 K/uL (0.11-0.59); Monocytes % (auto) 2.5 %; Neutrophils # (auto) 1.47 K/uL (1.40-6.50); Neutrophils % (auto) 72.4 %
[2023-09-30 23:29] LABS: Albumin Globulin Ratio 0.9 (0.9-2); Albumin Level 3.5 gm/dl (3.4-5.0); BUN Creatinine Ratio 20.9 (10-20); Bilirubin,Total 0.3 mg/dl (0.2-1.0); Calcium 8.7 mg/dl (8.6-10.3); Creatinine Clr Calc Pharmacy 24.4 ml/min; Est GFR (African American) 34.1 ml/min; Est GFR (Non-African American) 29.5 ml/min; Globulin 3.8 gm/dl (2.5-4.0); Magnesium 1.5 mg/dl (1.7-2.4); Potassium 5.2 mmol/L (3.5-5.1); Total Protein 7.3 gm/dl (6.0-8.3)
[2023-09-30 23:40] LABS: Partial Thromboplastin Time 28.9 Seconds (21.0-31.0); Prothrombin Time 11.3 Seconds (9.0-12.0)
[2023-10-01] MEDS: Octagam 10% IVIG 20 gram bottle IV SCH ×3 (01:03→21:27)
[2023-10-01] MEDS ORDERED: SODIUM ZIRCONIUM CYCLOSILICATE 10 GM PACKET PO STA (02:10)
[2023-10-01] MEDS: LEVOTHYROXINE SODIUM 50 MCG TABLET PO SCH (05:14)
--- NOTE | 2023-10-01 06:22 | Consultation ---
Date of Consultation September 30, 2023 Assessment & Plan (1) Thrombocytopenia: Severe thrombocytopenia associated with wet purpura and multiple peripheral petechiae, classic presentation for severe thrombocytopenia in ITP but could equally be seen in a drug-induced thrombocytopenia. Her had reported a "rash" but the actual presentation is more 1 of petechiae layered over chronic venous changes without the diffuse morbilliform rash I would expect as a drug reaction. Bactrim can certainly be associated with a drug-induced thrombocytopenia in isolation and that is strongly on the differential diagnosis along with an infection triggered ITP like syndrome Not clear whether steroids help with drug-induced thrombocytopenia but IV immunoglobulin has been used for that and given that we cannot absolutely distinguish between ITP versus DITP, with the severity of her thrombocytopenia I would certainly treat with both at least to start. She should also be listed as allergic to Bactrim going forward Bleeding may be exacerbated by her renal insufficiency and residual aspirin effect. In the absence of immediately threatening bleeding, platelet transfusions may be rapidly consumed by the same immune process. However, if there is any concern of bleeding whatsoever platelet transfusions may offer some degree of stabilization Hemoglobin and white count seem intact, there is no suggestion of a more significant mendoza marrow process. Her history and exam do not suggest the evolution of a lymphoproliferative disorder though we will certainly need to continue to monitor in time Plan 1. Discontinue Bactrim and label her as allergic to that though this is more of a DITP than drug rash reaction 2. Given that we cannot distinguish between ITP and DITP will treat with a combination of dexamethasone 40 mg daily for 4 days and IVIG 1 g/kg to start, repeating that dose at 24 hours if she is not showing strong platelet recovery. May want to consider the concomitant use of a PPI while on high-dose dexamethasone 3. Platelet transfusions would be potentially indicated for significant bleeding but otherwise would not likely impact the platelet counts in significant fashion during the acute phase 4. Aspirin and anticoagulants will obviously need to be held until her platelet and bleeding status are stable History of Present Illness Reason for Consultation: Severe thrombocytopenia Attending Physician: Ravinder Ojeda MD History of Present Illness 78-year-old woman with multiple issues including gout, hypertension, hypothyroidism, hyperlipidemia, sinus node dysfunction with a dual with pacemaker in place. She has had recurrent issues with a left great toe cellulitis and had been recently started on Bactrim 09/23/2023. Patient's is present and augments the history. To her and his knowledge she has never had any particular blood disorders nor any significant malignancies. She eats a regular diet. Patient has developed a "rash" which is actually multiple petechiae on her lower extremities layered over what sounds like a chronic venous stasis like appearance. This has been accompanied by some scant epistaxis when blowing her nose and multiple buccal hemorrhages. She has not had mayank GI or bleeding. Note the patient had been on long-term aspirin because of her cardiac issues and does present with some LEROY. Allergies Allergy/AdvReac Type Severity Reaction Status Date / Time sulfamethoxazole AdvReac Severe Rash Verified 10/01/23 06:26 [From Bactrim] trimethoprim [From Bactrim] AdvReac Severe Rash Verified 10/01/23 06:26 Home Medications Medication Instructions Recorded Confirmed Type ezetimibe 10 mg tablet 10 mg PO HS 05/30/22 09/30/23 History levothyroxine 50 mcg tablet 50 mcg PO DAILYBB 05/30/22 09/30/23 History lisinopril 10 mg tablet 10 mg PO QAM 05/30/22 09/30/23 History meloxicam 7.5 mg tablet 7.5 mg PO QAM 05/30/22 09/30/23 History omeprazole 20 mg capsule,delayed 20 mg PO QAM 05/30/22 09/30/23 History release solifenacin 5 mg tablet 5 mg PO QAM 05/30/22 09/30/23 History donepezil 5 mg tablet 5 mg PO HS #30 tabs 01/03/23 09/30/23 Rx allopurinol 100 mg tablet 200 mg PO QAM 09/30/23 09/30/23 History amlodipine 10 mg tablet 10 mg PO QAM 09/30/23 09/30/23 History aspirin 81 mg tablet,delayed 81 mg PO QAM 09/30/23 09/30/23 History release cyanocobalamin (vitamin B-12) 1,000 mcg PO QAM 09/30/23 09/30/23 History 1,000 mcg tablet (Vitamin B-12) omega 9-[id number]-fish oil 1,200 mg 1 cap PO QAM 09/30/23 09/30/23 History (144 mg-216 mg) capsule (Fish Oil) Patient History Medical History H/O Mohs micrographic surgery for skin cancer Surgical History S/P cataract surgery S/P cholecystectomy S/P colonoscopy S/P hysterectomy Family History Father Cancer Hypertension Mother Cancer Hypertension Social History Smoking Status: Never smoker Hx Alcohol Use: Yes Alcohol type: wine Hx Substance Use: No Preferred Language: Turkish Communication Ability: Effective Allied Health Instructor Required: No Beliefs That Will Affect Care: None Current Living Situation: Spouse Other Information That Helps Us Care for You: No Feels Safe at Home: Yes Safety Concerns: Feels Safe At This Time Assistive Devices: Denture - Upper, Glasses and Hearing Aid - Bilateral Physical Exam Physical Exam: Vital signs are stable. Patient is alert. Her speech is fluent and she seems t o answer simple questions well with only a moderate dementia-like issue particularly related to memory. She does have multifocal "what appropriate" of the oral cavity though she is not frankly coughing blood or showing any signs of significant current epistaxis. She has no pathologic peripheral adenopathy particular focusing on the cervical supraclavicular and axillary regions, lungs seem clear, cardiac rhythm is rate controlled without pathological murmur, abdomen seems benign without splenomegaly Bilateral distal lower extremities show classic multifocal purpura particularly concentrated in the lower half of the calf and covering the dorsum of the foot. Results & Data Vital Signs (Past 12 Hours) Vital Signs Temp Pulse Pulse Resp BP Pulse Ox O2 Del Method 10/01/23 03:26 36.7 C 60 19 145/63 H 95 Room Air 09/30/23 23:39 60 09/30/23 23:26 36.6 C 60 17 130/68 93 Room Air 09/30/23 19:10 36.7 C 60 18 148/56 H 94 Room Air PG Care Time/CCT Total # of Minutes Spent Total Time Spent with Patient: Total time spent is greater than 50% in coordination of care (as documented) at patient's floor/unit and/or counseling patient: Coding Level of Care Code 53831 IN/OBS CONSULT LVL 4,60M History Expanded Problem Focused Exam Expanded Problem Focused Medical Decision Making Moderate Complexity Diagnoses Thrombocytopenia D69.6 Comment This dictation represents an assessment performed 09/30/2023
[2023-10-01 07:15] LABS: Mean Corpuscular Hemoglobin 32.2 pg (25.0-34.0); Mean Corpuscular Hgb Conc 34.5 g/dL (32.0-36.0); Mean Corpuscular Volume 93.2 fL (80.0-100.0); Platelet Count 0 K/uL (130-400); RDW Coefficient of Variation 14.1 % (11.5-14.5); RDW Standard Deviation 47.6 fL (36.4-46.3); Red Blood Count 3.11 M/uL (4.20-5.40); White Blood Count 3.75 K/ul (4.8-10.8)
[2023-10-01 07:28] LABS: Albumin Globulin Ratio 0.7 (0.9-2); Albumin Level 3.6 gm/dl (3.4-5.0); BUN Creatinine Ratio 26.4 (10-20); Bilirubin,Total 0.3 mg/dl (0.2-1.0); Calcium 9.2 mg/dl (8.6-10.3); Creatinine Clr Calc Pharmacy 28.3 ml/min; Est GFR (Non-African American) 35.4 ml/min; Globulin 5.2 gm/dl (2.5-4.0); Magnesium 1.5 mg/dl (1.7-2.4); Potassium 4.6 mmol/L (3.5-5.1); Total Protein 8.8 gm/dl (6.0-8.3)
[2023-10-01 07:35] LABS: Basophils # (auto) 0.01 K/uL (0.00-0.20); Basophils % (auto) 0.3 %; Immature Granulocytes # (auto) 0.03 K/uL (0.01-0.20); Immature Granulocytes % (auto) 0.8 %; Lymphocytes # (auto) 0.79 K/uL (1.20-3.40); Lymphocytes % (auto) 21.1 %; Monocytes # (auto) 0.08 K/uL (0.11-0.59); Monocytes % (auto) 2.1 %; Neutrophils # (auto) 2.84 K/uL (1.40-6.50); Neutrophils % (auto) 75.7 %
[2023-10-01 07:36] LABS: Prothrombin Time 10.9 Seconds (9.0-12.0)
[2023-10-01] MEDS ORDERED: DEXAMETHASONE SOD INJ 4 MG/ML VIAL IV SCH (08:00)
[2023-10-01] MEDS: OXYBUTYNIN CHLORIDE XL 5 MG TABCR PO SCH (08:05)
[2023-10-01] MEDS: allopurinoL 100 MG TAB PO SCH (08:05)
[2023-10-01] MEDS: CYANOCOBALAMIN (B-12) 500 MCG TABLET PO SCH (08:06)
[2023-10-01] MEDS: amLODIPine BESYLATE 5 MG TAB PO SCH (08:06)
--- NOTE | 2023-10-01 08:09 | Hospitalist Progress Note ---
Date of Service October 01, 2023 Assessment & Plan (1) Thrombocytopenia: Plan: -Admit to the PCU on tele -Currently stable with minimal discomfort -Presented to the ED with mucosal mouth sores, easy bruising, and petechiae on the BL LE's which began yesterday Recent start Bactrim 2nd to toe cellulitis DDx ?Angel Bhavik/TEN reaction w/ mucosal involvement, ?DRESS, ?Acute generalized exanthematous pustulosis No elevated eosinophils on differential Plt 0, suggestive of ITP vs other CBC otherwise stable Heme/onc consulted (spoke w/ allergy immunology on admit as well) Presentation most c/w ITP, likely from infection to L great toe vs from Bactrim use given rash (reported no rash on admission A/P) Cannot r/o SJS, did place consult/send pictures for review to Dr Artis Discussed w/ Dr Ledesma, given 65gm IV immune globulin, repeating dose for today as plt still 0. No plt transfusion at this time (no active bleeding reported) Continue dexamethasone 40mg IV daily x 5 days at least then trantiion to PO steroids Protonix for GI proph while on high dose steroids Empiric folate/B12 Holding all anticoagulants/antiplatelets, home aspirin on hold Blood consult obtained, T/S on admission. LDH wnl. Peripheral smear w/o features of MDS Hepatits panel pending, Anaplasmosis smear negative. Lyme screening negative Odalys hebert prn mouth pain (non reported) Monitor labs on repeat Monitor for any bleeding (no further reported) -- holding off plt at this time (2) Hyperkalemia: Plan: K 6.2 on arrival, EKG stable. Likely due to LEROY. LDH wnl, no signs hemolysis Given 1gm Ca gluconate, IV insulin, dextrose and IVF Given lokemla x 1 overnight K stable at 4.6 Monitor (3) Toe infection: Plan: Seen by PCP 09/23, imaging negative for osteo Placed on bactrim 09/23, developed above thrombocytopenia/rash --> HOLDING FURTHER, pLACED ON ALLERGY LIST Repeat xray WITHOUT osteomyelitis Placed on ceftriaxone on admission She had been using topical voltaren to area, prior developed this ulceration 2nd to tight fitting shoes when attending wedding last month Does not appear overly infected on exam and will monitor (4) LEROY (acute kidney injury): Plan: Cr 1.7, baseline ~1.3. ?combination dehydration/recent bactrim use vs other Holding home lisinopril, given IVF on admission Avoid nephrotoxins/renal dose meds as able Renal function improving, Cr 1.4. Will hold off further IVF for now but continue to hold home lisinopril Monitor BMP in AM (5) Dementia: Plan: Continue Donepezil alert/oriented for myself during encounter supportive care (6) Hypothyroidism: Plan: Continue levothyroxine No recent TSH in system. Will not repeat w/ acute infection/reaction as likely would be elevated (7) HTN (hypertension): Plan: -Hold lisinopril with possible LEROY -Can continue amlodipine for now BP 150/68 and will monitor (8) Gout: Plan: -Conitnue allopurinol ? if prior redness from shoes more likely gout exacerbation however based on story given, more likely from ill fitting shoes (9) GERD (gastroesophageal reflux disease): Plan: IV Protonix daily while being treated with steroids No issues w/ PO intake/reflux reported Plan continued inpatient stay continue IV immune globulin/IV decadron Monitor CBC in AM/bleeding Admission and Anticipated Discharge Date Admission Date: September 30, 2023 Supervising Physician Co-Signing Physician Notes The patient was not seen by me. The chart was reviewed. Case discussed with RADHA Moore. Agree with assessment and plan Subjective Eval this afternoon, sitting up in bed, no acute distress. No further bleeding reported, no nose bleeds/etc. Tolerating diet. No issues with swallowing. Mucosal involvement to rash, started as blisters. Nonpainful. Progressed since this morning. Also w/ vasculitic type rash to her chest/torso as well as bilateral legs. Initially had cellulitis to her LEFT great toe from wearing tight shoes during wedding outing. No fever/chills, chest pain, shortness of breath, abdominal pain, nv at present. Discussed having dermatology weigh in as well but will continue immunoglobulin and IV dexamethasone for now. Questions/concerns addressed at this time. Physical Exam Physical Exam: General: WD/WN female sitting up in bed, NAD HEENT: head atraumatic, normocephalic, slightly dry mm, scattered lesions/subcutaneous bleeding from recent blisters reported, multiple lesions throughout mouth, nontender/no active drainage trachea midline, no stridor Resp: CTA, no w/c/r, on room air CV: RRR, no significant m/r/g, trace LE edema, calves nontender GI: +BS, soft/NT : no bunn Msk/Neuro: no focal deficit, no slurred speech follows commands, strength equal bilaterally LEFT grreat toe w/ medial ulceration, nontender, no drainage Skin: petechial rash to bilateral lower extremities as well as back/torso Psych: AOx3, cooperative with exam Results & Data Results & Data Vital Signs (Past 12 Hours) Vital Signs Temp Pulse Pulse Resp BP Pulse Ox O2 Del Method 10/01/23 03:26 36.7 C 60 19 145/63 H 95 Room Air 09/30/23 23:39 60 09/30/23 23:26 36.6 C 60 17 130/68 93 Room Air Laboratory Results 10/01/23 10/01/23 10/01/23 Range/Units 08:26 06:41 06:41 WBC 3.75 L (4.8-10.8) K/ul RBC 3.11 L (4.20-5.40) M/uL Hgb 10.0 L (12.0-16.0) g/dl Hct 29.0 L (37.0-47.0) % MCV 93.2 (80.0-100.0) fL MCH 32.2 (25.0-34.0) pg MCHC 34.5 (32.0-36.0) g/dL RDW Std Deviation 47.6 H (36.4-46.3) fL RDW Coeff of Alexandra 14.1 (11.5-14.5) % Plt Count 0 L* (130-400) K/uL Immature Gran % (Auto) 0.8 % Neut % (Auto) 75.7 % Lymph % (Auto) 21.1 % [place] % (Auto) 2.1 % Eos % (Auto) 0.0 % Baso % (Auto) 0.3 % Neut # (Auto) 2.84 (1.40-6.50) K/uL Lymph # (Auto) 0.79 L (1.20-3.40) K/uL [place] # (Auto) 0.08 L (0.11-0.59) K/uL Eos # (Auto) 0.00 (0.00-0.50) K/uL Baso # (Auto) 0.01 (0.00-0.20) K/uL Immature Gran # (Auto) 0.03 (0.01-0.20) K/uL PT (9.0-12.0) Seconds INR (0.9-1.1) APTT (21.0-31.0) Seconds PTT Ratio Sodium (136-145) mmol/L Potassium (3.5-5.1) mmol/L Chloride (98-107) mmol/L Carbon Dioxide (21-32) mmol/L Anion Gap (3-11) BUN (6-23) mg/dl Creatinine (0.6-1.2) mg/dl Est Cr Clr Drug Dosing ml/min Est GFR ( Amer) ml/min Est GFR (Non-Af Amer) ml/min BUN/Creatinine Ratio (10-20) Glucose (70-99(Fasting)) mg/dl Calcium (8.6-10.3) mg/dl Magnesium (1.7-2.4) mg/dl Total Bilirubin (0.2-1.0) mg/dl AST (13-39) U/L ALT (7-52) U/L Alkaline Phosphatase (34-104) U/L Lactate Dehydrogenase (86-244) U/L Total Protein (6.0-8.3) gm/dl Albumin (3.4-5.0) gm/dl Globulin (2.5-4.0) gm/dl Albumin/Globulin Ratio (0.9-2) Vitamin B12 (180-914) pg/ml Folate (>5.38) ng/ml Anaplasma Smear See Comment Lyme Disease IgG Ab Negative (Negative) Lyme Disease IgM Ab Negative (Negative) Blood Type Antibody Screen 10/01/23 10/01/23 09/30/23 Range/Units 06:41 06:41 22:44 WBC (4.8-10.8) K/ul RBC (4.20-5.40) M/uL Hgb (12.0-16.0) g/dl Hct (37.0-47.0) % MCV (80.0-100.0) fL MCH (25.0-34.0) pg MCHC (32.0-36.0) g/dL RDW Std Deviation (36.4-46.3) fL RDW Coeff of Alexandra (11.5-14.5) % Plt Count (130-400) K/uL Immature Gran % (Auto) % Neut % (Auto) % Lymph % (Auto) % [place] % (Auto) % Eos % (Auto) % Baso % (Auto) % Neut # (Auto) (1.40-6.50) K/uL Lymph # (Auto) (1.20-3.40) K/uL [place] # (Auto) (0.11-0.59) K/uL Eos # (Auto) (0.00-0.50) K/uL Baso # (Auto) (0.00-0.20) K/uL Immature Gran # (Auto) (0.01-0.20) K/uL PT 10.9 11.3 (9.0-12.0) Seconds INR 1.0 1.0 (0.9-1.1) APTT 28.9 (21.0-31.0) Seconds PTT Ratio 1.0 Sodium 130 L (136-145) mmol/L Potassium 4.6 (3.5-5.1) mmol/L Chloride 104 (98-107) mmol/L Carbon Dioxide 20 L (21-32) mmol/L Anion Gap 6 (3-11) BUN 37 H (6-23) mg/dl Creatinine 1.40 H (0.6-1.2) mg/dl Est Cr Clr Drug Dosing 28.3 ml/min Est GFR ( Amer) 41.0 ml/min Est GFR (Non-Af Amer) 35.4 ml/min BUN/Creatinine Ratio 26.4 H (10-20) Glucose 186 H (70-99(Fasting)) mg/dl Calcium 9.2 (8.6-10.3) mg/dl Magnesium 1.5 L (1.7-2.4) mg/dl Total Bilirubin 0.3 (0.2-1.0) mg/dl AST 21 (13-39) U/L ALT 17 (7-52) U/L Alkaline Phosphatase 76 (34-104) U/L Lactate Dehydrogenase (86-244) U/L Total Protein 8.8 H D (6.0-8.3) gm/dl Albumin 3.6 (3.4-5.0) gm/dl Globulin 5.2 H (2.5-4.0) gm/dl Albumin/Globulin Ratio 0.7 L (0.9-2) Vitamin B12 (180-914) pg/ml Folate (>5.38) ng/ml Anaplasma Smear Lyme Disease IgG Ab (Negative) Lyme Disease IgM Ab (Negative) Blood Type Antibody Screen 09/30/23 09/30/23 09/30/23 Range/Units 22:44 22:44 16:53 WBC 2.03 L (4.8-10.8) K/ul RBC 3.08 L (4.20-5.40) M/uL Hgb 9.8 L (12.0-16.0) g/dl Hct 29.5 L (37.0-47.0) % MCV 95.8 (80.0-100.0) fL MCH 31.8 (25.0-34.0) pg MCHC 33.2 (32.0-36.0) g/dL RDW Std Deviation 49.4 H (36.4-46.3) fL RDW Coeff of Alexandra 14.2 (11.5-14.5) % Plt Count 0 L* (130-400) K/uL Immature Gran % (Auto) 0.5 % Neut % (Auto) 72.4 % Lymph % (Auto) 24.6 % [place] % (Auto) 2.5 % Eos % (Auto) 0.0 % Baso % (Auto) 0.0 % Neut # (Auto) 1.47 (1.40-6.50) K/uL Lymph # (Auto) 0.50 L (1.20-3.40) K/uL [place] # (Auto) 0.05 L (0.11-0.59) K/uL Eos # (Auto) 0.00 (0.00-0.50) K/uL Baso # (Auto) 0.00 (0.00-0.20) K/uL Immature Gran # (Auto) 0.01 (0.01-0.20) K/uL PT (9.0-12.0) Seconds INR (0.9-1.1) APTT (21.0-31.0) Seconds PTT Ratio Sodium 130 L (136-145) mmol/L Potassium 5.2 H 4.5 D (3.5-5.1) mmol/L Chloride 105 (98-107) mmol/L Carbon Dioxide 18 L (21-32) mmol/L Anion Gap 7 (3-11) BUN 34 H (6-23) mg/dl Creatinine 1.63 H (0.6-1.2) mg/dl Est Cr Clr Drug Dosing 24.4 ml/min Est GFR ( Amer) 34.1 ml/min Est GFR (Non-Af Amer) 29.5 ml/min BUN/Creatinine Ratio 20.9 H (10-20) Glucose 232 H (70-99(Fasting)) mg/dl Calcium 8.7 (8.6-10.3) mg/dl Magnesium 1.5 L (1.7-2.4) mg/dl Total Bilirubin 0.3 (0.2-1.0) mg/dl AST 22 (13-39) U/L ALT 18 (7-52) U/L Alkaline Phosphatase 78 (34-104) U/L Lactate Dehydrogenase 161 (86-244) U/L Total Protein 7.3 (6.0-8.3) gm/dl Albumin 3.5 (3.4-5.0) gm/dl Globulin 3.8 (2.5-4.0) gm/dl Albumin/Globulin Ratio 0.9 (0.9-2) Vitamin B12 (180-914) pg/ml Folate (>5.38) ng/ml Anaplasma Smear Lyme Disease IgG Ab (Negative) Lyme Disease IgM Ab (Negative) Blood Type Antibody Screen 09/30/23 09/30/23 09/30/23 Range/Units 16:53 16:53 14:45 WBC (4.8-10.8) K/ul RBC (4.20-5.40) M/uL Hgb (12.0-16.0) g/dl Hct (37.0-47.0) % MCV (80.0-100.0) fL MCH (25.0-34.0) pg MCHC (32.0-36.0) g/dL RDW Std Deviation (36.4-46.3) fL RDW Coeff of Alexandra (11.5-14.5) % Plt Count (130-400) K/uL Immature Gran % (Auto) % Neut % (Auto) % Lymph % (Auto) % [place] % (Auto) % Eos % (Auto) % Baso % (Auto) % Neut # (Auto) (1.40-6.50) K/uL Lymph # (Auto) (1.20-3.40) K/uL [place] # (Auto) (0.11-0.59) K/uL Eos # (Auto) (0.00-0.50) K/uL Baso # (Auto) (0.00-0.20) K/uL Immature Gran # (Auto) (0.01-0.20) K/uL PT 10.9 (9.0-12.0) Seconds INR 1.0 (0.9-1.1) APTT 29.1 (21.0-31.0) Seconds PTT Ratio 1.0 Sodium (136-145) mmol/L Potassium (3.5-5.1) mmol/L Chloride (98-107) mmol/L Carbon Dioxide (21-32) mmol/L Anion Gap (3-11) BUN (6-23) mg/dl Creatinine (0.6-1.2) mg/dl Est Cr Clr Drug Dosing ml/min Est GFR ( Amer) ml/min Est GFR (Non-Af Amer) ml/min BUN/Creatinine Ratio (10-20) Glucose (70-99(Fasting)) mg/dl Calcium (8.6-10.3) mg/dl Magnesium (1.7-2.4) mg/dl Total Bilirubin (0.2-1.0) mg/dl AST (13-39) U/L ALT (7-52) U/L Alkaline Phosphatase (34-104) U/L Lactate Dehydrogenase (86-244) U/L Total Protein (6.0-8.3) gm/dl Albumin (3.4-5.0) gm/dl Globulin (2.5-4.0) gm/dl Albumin/Globulin Ratio (0.9-2) Vitamin B12 > 1500 H (180-914) pg/ml Folate 9.93 (>5.38) ng/ml Anaplasma Smear Lyme Disease IgG Ab (Negative) Lyme Disease IgM Ab (Negative) Blood Type O Positive Antibody Screen NEGATIVE 09/30/23 Range/Units 13:00 WBC (4.8-10.8) K/ul RBC (4.20-5.40) M/uL Hgb (12.0-16.0) g/dl Hct (37.0-47.0) % MCV (80.0-100.0) fL MCH (25.0-34.0) pg MCHC (32.0-36.0) g/dL RDW Std Deviation (36.4-46.3) fL RDW Coeff of Alexandra (11.5-14.5) % Plt Count (130-400) K/uL Immature Gran % (Auto) % Neut % (Auto) % Lymph % (Auto) % [place] % (Auto) % Eos % (Auto) % Baso % (Auto) % Neut # (Auto) (1.40-6.50) K/uL Lymph # (Auto) (1.20-3.40) K/uL [place] # (Auto) (0.11-0.59) K/uL Eos # (Auto) (0.00-0.50) K/uL Baso # (Auto) (0.00-0.20) K/uL Immature Gran # (Auto) (0.01-0.20) K/uL PT (9.0-12.0) Seconds INR (0.9-1.1) APTT (21.0-31.0) Seconds PTT Ratio Sodium (136-145) mmol/L Potassium (3.5-5.1) mmol/L Chloride (98-107) mmol/L Carbon Dioxide (21-32) mmol/L Anion Gap (3-11) BUN (6-23) mg/dl Creatinine (0.6-1.2) mg/dl Est Cr Clr Drug Dosing ml/min Est GFR ( Amer) ml/min Est GFR (Non-Af Amer) ml/min BUN/Creatinine Ratio (10-20) Glucose (70-99(Fasting)) mg/dl Calcium (8.6-10.3) mg/dl Magnesium (1.7-2.4) mg/dl Total Bilirubin (0.2-1.0) mg/dl AST (13-39) U/L ALT (7-52) U/L Alkaline Phosphatase (34-104) U/L Lactate Dehydrogenase 183 (86-244) U/L Total Protein (6.0-8.3) gm/dl Albumin (3.4-5.0) gm/dl Globulin (2.5-4.0) gm/dl Albumin/Globulin Ratio (0.9-2) Vitamin B12 (180-914) pg/ml Folate (>5.38) ng/ml Anaplasma Smear Lyme Disease IgG Ab (Negative) Lyme Disease IgM Ab (Negative) Blood Type Antibody Screen Diagnostic Findings Toe X-Ray 09/30/23 15:24 XR toe(s) LT min 2V CLINICAL HISTORY: left great toe infection TECHNIQUE: 3 views of the left first digit were obtained. Comparison: None available at the time of this dictation. FINDINGS: There is no evidence of erosive change to suggest osteomyelitis. Joint spaces are well-preserved. Soft tissue swelling is seen about the digit. IMPRESSION: Soft tissue swelling without underlying erosive change to suggest osteomyelitis. ACT 112: Negative or not required by law. Electronically signed by: Sai Johnson M.D. 09/30/2023 4:25 PM PG Care Time/CCT Total # of Minutes Spent Total Time Spent with Patient: Total time spent is greater than 50% in coordination of care (as documented) at patient's floor/unit and/or counseling patient: Coding Level of Care Code 57511 SUB INP/OBS CARE 3/50MIN Diagnoses Thrombocytopenia D69.6 Hyperkalemia E87.5 Toe infection L08.9 LEROY (acute kidney injury) N17.9 Dementia F03.90 Hypothyroidism E03.9 HTN (hypertension) I10 Gout M10.9 GERD (gastroesophageal reflux disease) K21.9
[2023-10-01] MEDS: dexAMETHasone 40 MG in DEXTROSE 5% 25 ML IV SCH (08:12)
[2023-10-01] MEDS: MAGNESIUM SULFATE / D5W 1 GM/100 ML BAG IV SCH ×3 (08:41→12:19)
--- NOTE | 2023-10-01 08:44 | Electrocardiogram Report ---
Test Reason : Blood Pressure : / mmHG Vent. Rate : 062 BPM Atrial Rate : 062 BPM P-R Int : 222 ms QRS Dur : 090 ms QT Int : 406 ms P-R-T Axes : -21 -36 049 degrees QTc Int : 412 ms Atrial-paced rhythm with prolonged AV conduction Left axis deviation Abnormal ECG No previous ECGs available Confirmed by Ananda Kuhn [id number]) on 10/01/2023 8:43:40 AM Referred By: REFERRED SELF Confirmed By:Romulo Kuhn
[2023-10-01] MEDS ORDERED: PANTOprazole 40 MG in SYRINGE 0 ML IV SCH (09:00)
[2023-10-01 10:08] LABS: Lyme Ab IgG w/WB Rflx Negative (Negative); Lyme Ab IgM w/WB Rflx Negative (Negative)
[2023-10-01] MEDS: FOLIC ACID 1 MG TAB PO SCH (10:14)
[2023-10-01] MEDS: cefTRIAXone SODIUM 2,000 MG in DEXTROSE 5 % MINI-B 50 ML IV SCH (15:35)
[2023-10-01] MEDS: Octagam 10% IVIG 5 gram bottle IV SCH (16:57)
[2023-10-01] MEDS: DONEPEZIL HCL 5 MG TAB PO SCH (19:59)
[2023-10-01] MEDS: EZETIMIBE 10 MG TAB PO SCH (19:59)
[2023-10-02] MEDS: Octagam 10% IVIG 20 gram bottle IV SCH (00:38)
[2023-10-02] MEDS: LEVOTHYROXINE SODIUM 50 MCG TABLET PO SCH (05:12)
--- NOTE | 2023-10-02 05:46 | Communication Note ---
Date of Service: October 02, 2023 Notified at 0430 pt had a large black gelatinous bowel movement. Heme occult was ordered and was positive. I went ahead and made patient NPO with IV fluids.. She is already on IV protonix. Will defer platelet transfusion to day team. Morning labs pending. Resident Activity Tracking Resident Involvement: Resident Care Provided Care Provided: Adult Hospital Medicine
[2023-10-02] MEDS ORDERED: SODIUM CHLORIDE 0.9% 1,000 ML IV SCH (06:00)
[2023-10-02 07:02] LABS: Hematocrit (blood only) 23.8 % (37.0-47.0); Mean Corpuscular Hemoglobin 32.1 pg (25.0-34.0); Mean Corpuscular Hgb Conc 33.6 g/dL (32.0-36.0); Mean Corpuscular Volume 95.6 fL (80.0-100.0); Platelet Count 2 K/uL (130-400); RDW Coefficient of Variation 14.1 % (11.5-14.5); RDW Standard Deviation 48.6 fL (36.4-46.3); Red Blood Count 2.49 M/uL (4.20-5.40); White Blood Count 9.35 K/ul (4.8-10.8)
[2023-10-02 07:07] LABS: Albumin Globulin Ratio 0.5 (0.9-2); Albumin Level 3.2 gm/dl (3.4-5.0); BUN Creatinine Ratio 38.1 (10-20); Bilirubin,Total 0.4 mg/dl (0.2-1.0); Calcium 8.9 mg/dl (8.6-10.3); Creatinine Clr Calc Pharmacy 35.1 ml/min; Est GFR (African American) 53.2 ml/min; Est GFR (Non-African American) 45.9 ml/min; Globulin 6.2 gm/dl (2.5-4.0); Potassium 4.7 mmol/L (3.5-5.1); Total Protein 9.4 gm/dl (6.0-8.3)
[2023-10-02 07:13] LABS: Basophils # (auto) 0.01 K/uL (0.00-0.20); Basophils % (auto) 0.1 %; Immature Granulocytes # (auto) 0.07 K/uL (0.01-0.20); Immature Granulocytes % (auto) 0.7 %; Lymphocytes # (auto) 1.12 K/uL (1.20-3.40); Monocytes # (auto) 0.26 K/uL (0.11-0.59); Monocytes % (auto) 2.8 %; Neutrophils # (auto) 7.89 K/uL (1.40-6.50); Neutrophils % (auto) 84.4 %
[2023-10-02 07:38] LABS: Prothrombin Time 10.9 Seconds (9.0-12.0)
[2023-10-02] MEDS ORDERED: SODIUM CHLORIDE 0.9% 250 ML IV PRN (07:58)
--- NOTE | 2023-10-02 07:59 | Hospitalist Progress Note ---
Date of Service October 02, 2023 Assessment & Plan (1) Thrombocytopenia: Plan: 78yo F presented to the ED with mucosal mouth sores, easy bruising, and petechiae on the BL LE's which began day prior to admission Recent start Bactrim 2nd to toe cellulitis 09/23 DDx ?Angel Gutierres/TEN reaction w/ mucosal involvement, ?DRESS, ?Acute generalized exanthematous pustulosis No elevated eosinophils on differential Plt 0, suggestive of ITP vs drug reaction from bactrim? CBC otherwise stable Heme/onc consulted (spoke w/ allergy immunology on admit as well) Presentation most c/w ITP, likely from infection to L great toe vs from Bactrim use given rash (reported no rash on admission A/P) Cannot r/o SJS, did place consult/send pictures for review to Dr Artis Blood consult obtained, T/S on admission. LDH wnl. Peripheral smear w/o features of MDS Holding all anticoagulants/antiplatelets, home aspirin on hold Discussed w/ Dr Ledesma, given 65gm IV immune globulin, repeated dose 10/01 -- no further for today Continue Dexamethasone 40mg IV daily x 5 prior to transition to PO steroid Placed on protonix IV daily for GI proph initially Clear liquid diet for now, increased protonix to IV BID given bloody stool x 1 overnight. VSS otherwise, could have some mucosal bleeding from low plts. GI consulted but given low plt, likely no intervention. Again could have some slow mucosal bleeding Recs from heme/onc for 1 u PRBC and 1 u platelets for today, will plan to monitor repeat CBC to see about response to platelet therapy Hepatitis panel pending Monitor labs on repeat (2) Hyperkalemia: Plan: K 6.2 on arrival, EKG stable. Likely due to LEROY. LDH wnl, no signs hemolysis Given 1gm Ca gluconate, IV insulin, dextrose and IVF on admission and provided lokemla x 1 overnight K stable at 4.7 and will monitor, lisinopril remaining on hold (3) Toe infection: Plan: Seen by PCP 09/23, imaging negative for osteo Placed on bactrim 09/23, developed above thrombocytopenia/rash --> HOLDING FURTHER, pLACED ON ALLERGY LIST Repeat xray WITHOUT osteomyelitis Placed on ceftriaxone on admission , continued Does not appear overly infected on exam and will monitor She had been using topical voltaren to area, prior developed this ulceration 2nd to tight fitting shoes when attending wedding last month (4) LERYO (acute kidney injury): Plan: Cr 1.7, baseline ~1.3. ?combination dehydration/recent bactrim use vs other Holding home lisinopril, given IVF on admission Cr back to baseline, improved and 1.13 Lisinopril on hold for today/prior hyperkalemia. Will hold off resuming but if renal function stable/no hyperkalemia could consider resuming Renal dose meds/avoid nephrotoxins Monitor BMP (5) Dementia: Plan: Continue Donepezil alert/oriented for myself during encounter supportive care (6) Hypothyroidism: Plan: Continue levothyroxine No recent TSH in system. Will not repeat w/ acute infection/reaction as likely would be elevated however pending repeat (7) HTN (hypertension): Plan: Hold lisinopril with possible LEROY (now resolved, consider resuming tomorrow) Can continue amlodipine for now -- BP 146/65 Monitor (8) Gout: Plan: Continue allopurinol ? 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 Agrees w/ acute ITP, no evidence for SJS (11) Acute hyperkalemia: Plan: as above, stable on repeat. monitor for ability to resume lisinopril (12) Bloody stool: Plan: overnight x 1 reported. + fecal occult. Was made NPO/IVF ordered given plt, stable vitals, GI consulted but obv w/ low plt no intervention. Agree w/ PPI BID, trend CBC (13) Anemia: Plan: Hgb 8 from 10 prior + fecal occult Heme/onc consulted as above, 1u PRBC/1 platelet, monitoring cbc following. If stable will monitor in AM, otherwise will repeat blood counts this evening Plan continued inpatient stay, updated family in room at bedside this morning PT evals to be undertaken (lives alone), suspect benefit from bleeding once stabilized Admission and Anticipated Discharge Date Admission Date: September 30, 2023 Supervising Physician Co-Signing Physician Notes The patient was not seen by me. The chart was reviewed. Case discussed with RADHA Moore. Agree with assessment and plan Subjective Eval this morning, doing well. Visiting with family. Plts at 2 "Gelatinous BM" reported overnight. Unclear if bright red or darker in color as not witnessed. PPI increased to BID, clear liquid diet provided. Awaiting PRBC/unit of platelets but monitoring repeat counts 1 hour following transfusion. No further bleeding at present. Sores to mouth looking improved. Physical Exam Physical Exam: General: WD/WN female sitting up in bed, NAD HEENT: head atraumatic, normocephalic, mmm, improvement in oral lesions, trachea midline Resp: CTA, no w/c/r, on room air 96% CV: RRR, no significant m/r/g, trace-1 LE edema, calves nontender GI: +BS, soft/NT : no bunn Msk/Neuro: no focal deficit, no slurred speech follows commands, strength equal bilaterally LEFT great toe w/ medial ulceration, nontender, no drainage Skin: petechial rash to bilateral lower extremities as well as back/torso --- NOT WORSENED Psych: AOx3, cooperative with exam Results & Data Results & Data Vital Signs (Past 12 Hours) Vital Signs Temp Pulse Pulse Resp BP Pulse Ox O2 Del Method 10/02/23 04:41 36.6 C 60 18 168/74 H 97 Room Air 10/01/23 22:56 60 10/01/23 22:42 36.7 C 66 18 144/63 H 93 Room Air Laboratory Results 10/02/23 10/02/23 10/02/23 Range/Units 06:23 06:19 04:46 WBC 9.35 (4.8-10.8) K/ul RBC 2.49 L (4.20-5.40) M/uL Hgb 8.0 L (12.0-16.0) g/dl Hct 23.8 L (37.0-47.0) % MCV 95.6 (80.0-100.0) fL MCH 32.1 (25.0-34.0) pg MCHC 33.6 (32.0-36.0) g/dL RDW Std Deviation 48.6 H (36.4-46.3) fL RDW Coeff of Alexandra 14.1 (11.5-14.5) % Plt Count 2 L* D (130-400) K/uL Immature Gran % (Auto) 0.7 % Neut % (Auto) 84.4 % Lymph % (Auto) 12.0 % [place] % (Auto) 2.8 % Eos % (Auto) 0.0 % Baso % (Auto) 0.1 % Neut # (Auto) 7.89 H (1.40-6.50) K/uL Lymph # (Auto) 1.12 L (1.20-3.40) K/uL [place] # (Auto) 0.26 (0.11-0.59) K/uL Eos # (Auto) 0.00 (0.00-0.50) K/uL Baso # (Auto) 0.01 (0.00-0.20) K/uL Immature Gran # (Auto) 0.07 (0.01-0.20) K/uL PT 10.9 (9.0-12.0) Seconds INR 1.0 (0.9-1.1) Sodium 128 L (136-145) mmol/L Potassium 4.7 (3.5-5.1) mmol/L Chloride 102 (98-107) mmol/L Carbon Dioxide 21 (21-32) mmol/L Anion Gap 5 (3-11) BUN 43 H (6-23) mg/dl Creatinine 1.13 (0.6-1.2) mg/dl Est Cr Clr Drug Dosing 35.1 ml/min Est GFR ( Amer) 53.2 ml/min Est GFR (Non-Af Amer) 45.9 ml/min BUN/Creatinine Ratio 38.1 H (10-20) Glucose 134 H (70-99(Fasting)) mg/dl Calcium 8.9 (8.6-10.3) mg/dl Magnesium 2.0 (1.7-2.4) mg/dl Total Bilirubin 0.4 (0.2-1.0) mg/dl AST 22 (13-39) U/L ALT 16 (7-52) U/L Alkaline Phosphatase 58 (34-104) U/L Total Protein 9.4 H (6.0-8.3) gm/dl Albumin 3.2 L (3.4-5.0) gm/dl Globulin 6.2 H (2.5-4.0) gm/dl Albumin/Globulin Ratio 0.5 L (0.9-2) Stool Occult Bld Scrn Positive A (Negative) Anaplasma Smear Lyme Disease IgG Ab (Negative) Lyme Disease IgM Ab (Negative) Blood Type Recheck O Positive 10/01/23 10/01/23 Range/Units 08:26 06:41 WBC (4.8-10.8) K/ul RBC (4.20-5.40) M/uL Hgb (12.0-16.0) g/dl Hct (37.0-47.0) % MCV (80.0-100.0) fL MCH (25.0-34.0) pg MCHC (32.0-36.0) g/dL RDW Std Deviation (36.4-46.3) fL RDW Coeff of Alexandra (11.5-14.5) % Plt Count (130-400) K/uL Immature Gran % (Auto) % Neut % (Auto) % Lymph % (Auto) % [place] % (Auto) % Eos % (Auto) % Baso % (Auto) % Neut # (Auto) (1.40-6.50) K/uL Lymph # (Auto) (1.20-3.40) K/uL [place] # (Auto) (0.11-0.59) K/uL Eos # (Auto) (0.00-0.50) K/uL Baso # (Auto) (0.00-0.20) K/uL Immature Gran # (Auto) (0.01-0.20) K/uL PT (9.0-12.0) Seconds INR (0.9-1.1) Sodium (136-145) mmol/L Potassium (3.5-5.1) mmol/L Chloride (98-107) mmol/L Carbon Dioxide (21-32) mmol/L Anion Gap (3-11) BUN (6-23) mg/dl Creatinine (0.6-1.2) mg/dl Est Cr Clr Drug Dosing ml/min Est GFR ( Amer) ml/min Est GFR (Non-Af Amer) ml/min BUN/Creatinine Ratio (10-20) Glucose (70-99(Fasting)) mg/dl Calcium (8.6-10.3) mg/dl Magnesium (1.7-2.4) mg/dl Total Bilirubin (0.2-1.0) mg/dl AST (13-39) U/L ALT (7-52) U/L Alkaline Phosphatase (34-104) U/L Total Protein (6.0-8.3) gm/dl Albumin (3.4-5.0) gm/dl Globulin (2.5-4.0) gm/dl Albumin/Globulin Ratio (0.9-2) Stool Occult Bld Scrn (Negative) Anaplasma Smear See Comment Lyme Disease IgG Ab Negative (Negative) Lyme Disease IgM Ab Negative (Negative) Blood Type Recheck PG Care Time/CCT Total # of Minutes Spent Total Time Spent with Patient: Total time spent is greater than 50% in coordination of care (as documented) at patient's floor/unit and/or counseling patient: Coding Level of Care Code 73826 SUB INP/OBS CARE 3/50MIN Diagnoses Thrombocytopenia D69.6 Hyperkalemia E87.5 Toe infection L08.9 LEROY (acute kidney injury) N17.9 Dementia F03.90 Hypothyroidism E03.9 HTN (hypertension) I10 Gout M10.9 GERD (gastroesophageal reflux disease) K21.9 Acute idiopathic thrombocytopenic purpura D69.3 Acute hyperkalemia E87.5 Bloody stool K92.1 Anemia D64.9
[2023-10-02] MEDS: OXYBUTYNIN CHLORIDE XL 5 MG TABCR PO SCH (09:18)
[2023-10-02] MEDS: PANTOprazole 40 MG in SYRINGE 0 ML IV SCH ×2 (09:18→19:52)
[2023-10-02] MEDS: FOLIC ACID 1 MG TAB PO SCH (09:19)
[2023-10-02] MEDS: amLODIPine BESYLATE 5 MG TAB PO SCH (09:19)
[2023-10-02] MEDS: dexAMETHasone 40 MG in DEXTROSE 5% 25 ML IV SCH (09:19)
[2023-10-02] MEDS: allopurinoL 100 MG TAB PO SCH (09:19)
[2023-10-02] MEDS: CYANOCOBALAMIN (B-12) 500 MCG TABLET PO SCH (09:19)
--- NOTE | 2023-10-02 10:11 | Gastrointestinal Consultation ---
Date of Consultation October 02, 2023 Assessment & Plan (1) Acute idiopathic thrombocytopenic purpura: 78 year old female admitted w/ acute severe thrombocytopenia w/ purpura w/ heme positive dark stools. She is hemodynamically stable w/ BP 153/68, pulse 67, HGB 8 w/ BUN 43. In light of her severe thrombocytopenia with platelet count of 2 this AM, she is not a candidate for elective endoscopic evaluation. Recommend to continue conservatives measures. May continue liquids as tolerated. No NSAIDs. No AC. No ASA. Agree w/ IV PPI bolus/drip. Trend H&H. Monitor and document GI output. Transfusion if needed per the primary team. We would recommend a platelet count >50,000 prior to endoscopic evaluation Recall as needed. Thank you for allowing us to participate in the care of this patient. Please call with any acute changes, questions or concerns. Please see addendum below with additional recommendation from my supervising physician. Supervising Physician Co-Signing Physician Notes I personally saw and evaluated the patient on 10/02/2023 with SAMIR Saha and agree with her findings and plan of care. Abdomen soft and non-tender. 78 y/o F admitted with bruising, mouth sores found to have severe thrombocytopenia with a platelet count of 0. GI consulted for 1 episode of melena. Hgb is 8 from baseline of 12. She denies any further melena, hematemesis, or hematochezia. Teams suspecting ITP from infection vs. drug induced thrombocytopenia from bactrim. She is getting IVIG and dexamethasone. Endoscopy is contraindicated with a platelet count of 2 and poses more harm than benefit. She likely has mucosal oozing from severe thrombocytopenia. If active bleeding would transfuse with platelets to maintain platelet count above 20. Trend H/H and transfuse for hgb <7. Supportive care at this time. PPI 40 mg BID. Helen Peng DO Gastroenterology and Hepatology History of Present Illness Reason for Consultation: heme positive stool Requesting Physician: Edu Attending Physician: Royce Sorensen MD History of Present Illness 78 year old female w/ history of dementia, Gout, HTN, hypothyroidism, hyperlipidemia, sinus node dysfunction S/P dual chamber pacemaker placement admitted through the ED w/ easy bruising/bleeding - GI asked to evaluate for heme positive stools she is currently admitted w/ severe thrombocytopenia, concern for ABX induced. She is a poor historian but suggests from a GI standpoint she feels okay. aids in history. She alisson abd pain, nausea, vomiting. Is tolerating PO intake. Denies GERD or dysphagia. Is moving her bowel s on a bedside commode. Stools are darker in color but no report of BRBPR. HGB 12.3 --> 9.8 --> 10 --> 8 PLT 354 --> 0 --> 2 INR 1 BUN 43 w/ CHEMIC MANGLER 1.13 Tbili 0.4, AST 22, ALT 16, ALKP 58 Colon 2019: One 1 mm polyp in the rectum, removed with a cold snare. Resected and retrieved. - Diverticulosis in the sigmoid colon. - Internal hemorrhoids. - Otherwise normal to the terminal ileum, with retroflexed views of the ascending colon and rectum Colon 2013: Diverticulosis from sigmoid to descending colon. - Internal hemorrhoids. - Otherwise normal to the terminal ileum, with retroflexed views of the ascending colon and rectum. Allergies Allergy/AdvReac Type Severity Reaction Status Date / Time sulfamethoxazole AdvReac Severe Rash Verified 10/01/23 06:26 [From Bactrim] trimethoprim [From Bactrim] AdvReac Severe Rash Verified 10/01/23 06:26 Home Medications Medication Instructions Recorded Confirmed Type ezetimibe 10 mg tablet 10 mg PO HS 05/30/22 09/30/23 History levothyroxine 50 mcg tablet 50 mcg PO DAILYBB 05/30/22 09/30/23 History lisinopril 10 mg tablet 10 mg PO QAM 05/30/22 09/30/23 History meloxicam 7.5 mg tablet 7.5 mg PO QAM 05/30/22 09/30/23 History omeprazole 20 mg capsule,delayed 20 mg PO QAM 05/30/22 09/30/23 History release solifenacin 5 mg tablet 5 mg PO QAM 05/30/22 09/30/23 History donepezil 5 mg tablet 5 mg PO HS #30 tabs 01/03/23 09/30/23 Rx allopurinol 100 mg tablet 200 mg PO QAM 09/30/23 09/30/23 History amlodipine 10 mg tablet 10 mg PO QAM 09/30/23 09/30/23 History aspirin 81 mg tablet,delayed 81 mg PO QAM 09/30/23 09/30/23 History release cyanocobalamin (vitamin B-12) 1,000 mcg PO QAM 09/30/23 09/30/23 History 1,000 mcg tablet (Vitamin B-12) omega [id number]-fish oil 1,200 mg 1 cap PO QAM 09/30/23 09/30/23 History (144 mg-216 mg) capsule (Fish Oil) Patient History Medical History H/O Mohs micrographic surgery for skin cancer Surgical History S/P cataract surgery S/P cholecystectomy S/P colonoscopy S/P hysterectomy Family History Father Cancer Hypertension Mother Cancer Hypertension Social History Smoking Status: Never smoker Hx Alcohol Use: Yes Alcohol type: wine Hx Substance Use: No Preferred Language: Chinese Communication Ability: Effective Saddle Cutter Required: No Beliefs That Will Affect Care: None Current Living Situation: Spouse Other Information That Helps Us Care for You: No Feels Safe at Home: Yes Safety Concerns: Feels Safe At This Time Assistive Devices: Walker Review of Systems Review of Systems: All systems reviewed & are unremarkable except as noted in HPI & below Physical Exam Constitutional: WD/WN, vitals as above Respiratory: normal respiratory effort, lungs clear to auscultation Cardiovascular: RRR, no murmur, no edema Gastrointestinal (Abdomen): Inspection/Auscultation: normal bowel sounds Percussion/Palpation: abdomen soft; abdomen nontender Results & Data Vital Signs (Past 12 Hours) Vital Signs Temp Pulse Pulse Resp BP Pulse Ox O2 Del Method 10/02/23 07:46 36.5 C 67 21 153/68 H 97 Room Air 10/02/23 04:41 36.6 C 60 18 168/74 H 97 Room Air 10/01/23 22:56 60 10/01/23 22:42 36.7 C 66 18 144/63 H 93 Room Air Laboratory Results 10/02/23 10/02/23 10/02/23 Range/Units 06:23 06:19 04:46 WBC 9.35 (4.8-10.8) K/ul RBC 2.49 L (4.20-5.40) M/uL Hgb 8.0 L (12.0-16.0) g/dl Hct 23.8 L (37.0-47.0) % MCV 95.6 (80.0-100.0) fL MCH 32.1 (25.0-34.0) pg MCHC 33.6 (32.0-36.0) g/dL RDW Std Deviation 48.6 H (36.4-46.3) fL RDW Coeff of Alexandra 14.1 (11.5-14.5) % Plt Count 2 L* D (130-400) K/uL Immature Gran % (Auto) 0.7 % Neut % (Auto) 84.4 % Lymph % (Auto) 12.0 % [place] % (Auto) 2.8 % Eos % (Auto) 0.0 % Baso % (Auto) 0.1 % Neut # (Auto) 7.89 H (1.40-6.50) K/uL Lymph # (Auto) 1.12 L (1.20-3.40) K/uL [place] # (Auto) 0.26 (0.11-0.59) K/uL Eos # (Auto) 0.00 (0.00-0.50) K/uL Baso # (Auto) 0.01 (0.00-0.20) K/uL Immature Gran # (Auto) 0.07 (0.01-0.20) K/uL PT 10.9 (9.0-12.0) Seconds INR 1.0 (0.9-1.1) Sodium 128 L (136-145) mmol/L Potassium 4.7 (3.5-5.1) mmol/L Chloride 102 (98-107) mmol/L Carbon Dioxide 21 (21-32) mmol/L Anion Gap 5 (3-11) BUN 43 H (6-23) mg/dl Creatinine 1.13 (0.6-1.2) mg/dl Est Cr Clr Drug Dosing 35.1 ml/min Est GFR ( Amer) 53.2 ml/min Est GFR (Non-Af Amer) 45.9 ml/min BUN/Creatinine Ratio 38.1 H (10-20) Glucose 134 H (70-99(Fasting)) mg/dl Calcium 8.9 (8.6-10.3) mg/dl Magnesium 2.0 (1.7-2.4) mg/dl Total Bilirubin 0.4 (0.2-1.0) mg/dl AST 22 (13-39) U/L ALT 16 (7-52) U/L Alkaline Phosphatase 58 (34-104) U/L Total Protein 9.4 H (6.0-8.3) gm/dl Albumin 3.2 L (3.4-5.0) gm/dl Globulin 6.2 H (2.5-4.0) gm/dl Albumin/Globulin Ratio 0.5 L (0.9-2) Stool Occult Bld Scrn Positive A (Negative) Lyme Disease IgG Ab (Negative) Lyme Disease IgM Ab (Negative) Blood Type Blood Type Recheck O Positive Antibody Screen Crossmatch 10/01/23 09/30/23 Range/Units 08:26 16:53 WBC (4.8-10.8) K/ul RBC (4.20-5.40) M/uL Hgb (12.0-16.0) g/dl Hct (37.0-47.0) % MCV (80.0-100.0) fL MCH (25.0-34.0) pg MCHC (32.0-36.0) g/dL RDW Std Deviation (36.4-46.3) fL RDW Coeff of Alexandra (11.5-14.5) % Plt Count (130-400) K/uL Immature Gran % (Auto) % Neut % (Auto) % Lymph % (Auto) % [place] % (Auto) % Eos % (Auto) % Baso % (Auto) % Neut # (Auto) (1.40-6.50) K/uL Lymph # (Auto) (1.20-3.40) K/uL [place] # (Auto) (0.11-0.59) K/uL Eos # (Auto) (0.00-0.50) K/uL Baso # (Auto) (0.00-0.20) K/uL Immature Gran # (Auto) (0.01-0.20) K/uL PT (9.0-12.0) Seconds INR (0.9-1.1) Sodium (136-145) mmol/L Potassium (3.5-5.1) mmol/L Chloride (98-107) mmol/L Carbon Dioxide (21-32) mmol/L Anion Gap (3-11) BUN (6-23) mg/dl Creatinine (0.6-1.2) mg/dl Est Cr Clr Drug Dosing ml/min Est GFR ( Amer) ml/min Est GFR (Non-Af Amer) ml/min BUN/Creatinine Ratio (10-20) Glucose (70-99(Fasting)) mg/dl Calcium (8.6-10.3) mg/dl Magnesium (1.7-2.4) mg/dl Total Bilirubin (0.2-1.0) mg/dl AST (13-39) U/L ALT (7-52) U/L Alkaline Phosphatase (34-104) U/L Total Protein (6.0-8.3) gm/dl Albumin (3.4-5.0) gm/dl Globulin (2.5-4.0) gm/dl Albumin/Globulin Ratio (0.9-2) Stool Occult Bld Scrn (Negative) Lyme Disease IgG Ab Negative (Negative) Lyme Disease IgM Ab Negative (Negative) Blood Type O Positive Blood Type Recheck Antibody Screen NEGATIVE Crossmatch See Detail
[2023-10-02 11:17] LABS: HBSAG NON-REACTIVE (NON-REACTIVE); Hepatitis A Antibody IgM NON-REACTIVE (NON-REACTIVE); Hepatitis B Core Antibody IgM NON-REACTIVE (NON-REACTIVE)
--- NOTE | 2023-10-02 12:42 | Dermatology Consultation ---
Date of Consultation October 02, 2023 Assessment & Plan (1) Thrombocytopenia: Cutaneous findings are those of petechiae/ecchymosis/few resolving hemorrhagic erosions indicative of her severe thrombocytopenia. Findings are not c/w a vasculitis or severe adverse cutaneous drug reaction (i.e. SJS). Discussed this with patient and her family at length. I will defer to hematology in terms of any further evaluation/management. Also discussed with patient and her family that there are no active signs of cellulitis/infection involving the left great toe or elsewhere on the skin today. I am happy to re-evaluate if there is a concerning change in her skin exam. Thanks for the consult. Present on Admission?: Yes History of Present Illness Reason for Consultation: Rash Requesting Physician: Tonya Woods PA-C Attending Physician: Royce Sorensen MD History of Present Illness 78 y/o WF with past medical history significant for gout, hypertension, hypothyroidism, hyperlipidemia and sinus node dysfunction admitted to [facility] on 09/30/2023 with rash involving the lower extremities. Patient has a recent history of recurrent left great toe cellulitis. She was apparently recently started on Bactrim on 09/23/2023 for this. Lesions gradually started to appear on the lower extremities and then elsewhere on the arms and back. Patient also noticed some bleeding whenever she blew her nose as well as some bruise-like lesions within the mouth. She presented to the ED on 09/30/2023, and her platelet count was 0 at the time of initial evaluation. She has been evaluated by hematology/oncology, and their concern is for ITP vs. drug-induced thrombocytopenia. She is currently receiving dexamethasone IV 40 mg daily. She is also scheduled to receive platelet transfusion as well as blood transfusion as her H/H lowered today following a bloody bowel movement yesterday. She denies any itching or pain involving the skin. No blisters or erosions on the skin surface. She denies any history of adverse drug reactions in the past. Th ere was some concern for possible SJS, which was the reason for my consultation. Allergies Allergy/AdvReac Type Severity Reaction Status Date / Time sulfamethoxazole AdvReac Severe Rash Verified 10/01/23 06:26 [From Bactrim] trimethoprim [From Bactrim] AdvReac Severe Rash Verified 10/01/23 06:26 Home Medications Medication Instructions Recorded Confirmed Type ezetimibe 10 mg tablet 10 mg PO HS 05/30/22 09/30/23 History levothyroxine 50 mcg tablet 50 mcg PO DAILYBB 05/30/22 09/30/23 History lisinopril 10 mg tablet 10 mg PO QAM 05/30/22 09/30/23 History meloxicam 7.5 mg tablet 7.5 mg PO QAM 05/30/22 09/30/23 History omeprazole 20 mg capsule,delayed 20 mg PO QAM 05/30/22 09/30/23 History release solifenacin 5 mg tablet 5 mg PO QAM 05/30/22 09/30/23 History donepezil 5 mg tablet 5 mg PO HS #30 tabs 01/03/23 09/30/23 Rx allopurinol 100 mg tablet 200 mg PO QAM 09/30/23 09/30/23 History amlodipine 10 mg tablet 10 mg PO QAM 09/30/23 09/30/23 History aspirin 81 mg tablet,delayed 81 mg PO QAM 09/30/23 09/30/23 History release cyanocobalamin (vitamin B-12) 1,000 mcg PO QAM 09/30/23 09/30/23 History 1,000 mcg tablet (Vitamin B-12) omega 6-bdr-brm-fish oil 1,200 mg 1 cap PO QAM 09/30/23 09/30/23 History (144 mg-216 mg) capsule (Fish Oil) Patient History Medical History H/O Mohs micrographic surgery for skin cancer Surgical History S/P cataract surgery S/P cholecystectomy S/P colonoscopy S/P hysterectomy Family History Father Cancer Hypertension Mother Cancer Hypertension Social History Smoking Status: Never smoker Hx Alcohol Use: Yes Alcohol type: wine Hx Substance Use: No Preferred Language: Slovenian Communication Ability: Effective [employer] Required: No Beliefs That Will Affect Care: None Current Living Situation: Spouse Other Information That Helps Us Care for You: No Feels Safe at Home: Yes Safety Concerns: Feels Safe At This Time Assistive Devices: Walker Review of Systems Review of Systems: All systems reviewed & are unremarkable except as noted in HPI & below Physical Exam Physical Exam: General Appearance:Well developed, well-nourished and in no acute distress Psych:Alert, Oriented and Appropriate Skin Type:2 Face: +ecchymosis on the right anterior mandibular cheek Eyelids/Ocular Mucosa: ocular mucosa WNLno abnormalities noted. Lips/Teeth/Gums: +ecchymosis on the right upper cutaneous lip; +healing hemorrhagic erosion on the right lateral tongue, left buccal cheek, inferior labial mucosa Neck: +petechiae on the posterior neck Right Lower Extremity:+petechiae on the lower leg, dorsal foot Left Lower Extremity:+petechiae on the lower leg, dorsal foot; +mild desquamating scale on the medial 1st toe without erythema/drainage/warmth/tenderness Back:+petechiae on the upper back/posterior shoulders; +associated ecchymosis on the right scapular back Buttocks/Groin/Genitalia: not examined Right Upper Extremity:+petechiae on the forearm, lateral upper arm Left Upper Extremity:+petechiae on the forearm, lateral upper arm Nails: no abnormalities noted Results & Data Vital Signs (Past 12 Hours) Vital Signs Temp Pulse Resp BP Pulse Ox O2 Del Method 10/02/23 11:45 36.4 C L 60 20 138/71 96 Room Air 10/02/23 07:46 36.5 C 67 21 153/68 H 97 Room Air 10/02/23 04:41 36.6 C 60 18 168/74 H 97 Room Air Laboratory Results Abnormal lab results 09/30/23 10/02/23 10/02/23 Range/Units 16:53 04:46 06:19 RBC 2.49 L (4.20-5.40) M/uL Hgb 8.0 L (12.0-16.0) g/dl Hct 23.8 L (37.0-47.0) % RDW Std Deviation 48.6 H (36.4-46.3) fL Plt Count 2 L* D (130-400) K/uL Neut # (Auto) 7.89 H (1.40-6.50) K/uL Lymph # (Auto) 1.12 L (1.20-3.40) K/uL Sodium 128 L (136-145) mmol/L BUN 43 H (6-23) mg/dl BUN/Creatinine Ratio 38.1 H (10-20) Glucose 134 H (70-99(Fasting)) mg/dl Total Protein 9.4 H (6.0-8.3) gm/dl Albumin 3.2 L (3.4-5.0) gm/dl Globulin 6.2 H (2.5-4.0) gm/dl Albumin/Globulin Ratio 0.5 L (0.9-2) Stool Occult Bld Scrn Positive A (Negative) Crossmatch See Detail Remainder of labs reviewed in [facility]. Diagnostic Findings Imaging results reviewed in [facility]. Medications Administered MAR reviewed in [facility]. PG Care Time/CCT Total # of Minutes Spent Total Time Spent with Patient: Total time spent is greater than 50% in coordination of care (as documented) at patient's floor/unit and/or counseling patient: Coding Level of Care Code 47998 INT INP/OBS CARE 2/55MIN Diagnoses Thrombocytopenia D69.6
[2023-10-02 18:19] LABS: Hematocrit (blood only) 26.9 % (37.0-47.0); Hemoglobin 8.9 g/dl (12.0-16.0)
[2023-10-02] MEDS: cefTRIAXone SODIUM 2,000 MG in DEXTROSE 5 % MINI-B 50 ML IV SCH (18:36)
[2023-10-02 19:05] LABS: Hematocrit (blood only) 26.9 % (37.0-47.0); Immature Granulocytes # (auto) 0.08 K/uL (0.01-0.20); Immature Granulocytes % (auto) 0.9 %; Lymphocytes # (auto) 0.86 K/uL (1.20-3.40); Lymphocytes % (auto) 9.9 %; Mean Corpuscular Hemoglobin 31.7 pg (25.0-34.0); Mean Corpuscular Hgb Conc 33.5 g/dL (32.0-36.0); Mean Corpuscular Volume 94.7 fL (80.0-100.0); Monocytes # (auto) 0.11 K/uL (0.11-0.59); Monocytes % (auto) 1.3 %; Neutrophils # (auto) 7.62 K/uL (1.40-6.50); Neutrophils % (auto) 87.9 %; Platelet Count 14 K/uL (130-400); Platelet Estimate Signific. Decreased (Normal); RDW Coefficient of Variation 14.4 % (11.5-14.5); RDW Standard Deviation 49.2 fL (36.4-46.3); Red Blood Count 2.84 M/uL (4.20-5.40); White Blood Count 8.67 K/ul (4.8-10.8)
[2023-10-02] MEDS: EZETIMIBE 10 MG TAB PO SCH (19:52)
[2023-10-02] MEDS: DONEPEZIL HCL 5 MG TAB PO SCH (19:52)
[2023-10-03] MEDS: LEVOTHYROXINE SODIUM 50 MCG TABLET PO SCH (05:17)
--- NOTE | 2023-10-03 06:32 | Hospitalist Progress Note ---
Date of Service October 02, 2023 Assessment & Plan (1) Anemia: Plan: Evolving anemia almost certainly represents GI loss. May want to use a threshold of 8 g/dL for transfusion for the time being given the inability to exactly gauge ongoing bleeding. (2) Bloody stool: Plan: In part B would expect melena just from the swallowing of oral bleeding but the bright red color does suggest that there was an element of more distal GI bleeding as well. We certainly cannot exclude a specific lesion but with such low platelet counts it would not be surprising for bleeding to come from minor trauma to superficial blood vessels in the GI mucosa. We will suggest a single donor platelet transfusion with platelet count check 30 minutes afterwards to assure that there is some response. If active bleeding continues and she is responding to platelets, would target to get her platelet counts to 30-50,000 range (3) Thrombocytopenia: Plan: Persistent thrombocytopenia may not be surprising if this is a drug-induced mechanism. Given the GI bleeding suggest transfusion as above. It is not clear that there would be any utility to give additional immunoglobulin at this time but she should complete her course of dexamethasone Plan 1. No further immunoglobulin indicated at this time 2. Would complete her course of dexamethasone 3. Transfuse red cells to keep hemoglobin above 8 g/dL as long as there is any potential for ongoing GI bleeding 4. One-time transfusion of a single donor platelet pack. If she responds well to that but has persistent bleeding may want to transfuse up to 30-50,000. Admission and Anticipated Discharge Date Admission Date: September 30, 2023 Subjective Continues to feel reasonably well. She did pass melanotic stool earlier today but is not complaining of acute GI issues at this time Physical Exam Physical Exam: Alert, cooperative. She continues to have slow responses but show signs of short and long-term memory deficits. Patient's daughters and granddaughters were present at the time of visit and all expressed that she seems to be near her baseline. Lung and cardiac exams are stable, abdomen is nontender and nondistended with active bowel sounds. Oral mucosa to cutaneous hemorrhages seem to be stabilized, peripheral petechiae persist Results & Data Results & Data Vital Signs (Past 12 Hours) Vital Signs Temp Pulse Pulse Resp BP BP Pulse Ox 10/03/23 03:22 36.6 C 63 18 153/66 H 96 10/02/23 23:06 36.5 C 60 18 144/64 H 96 10/02/23 22:52 60 10/02/23 19:46 36.5 C 61 18 146/64 H 95 O2 Del Method 10/03/23 03:22 Room Air 10/02/23 23:06 Room Air 10/02/23 22:52 10/02/23 19:46 Room Air PG Care Time/CCT Total # of Minutes Spent Total Time Spent with Patient: Total time spent is greater than 50% in coordination of care (as documented) at patient's floor/unit and/or counseling patient: Coding Level of Care Code 72136 SUB INP/OBS CARE 125MIN Diagnoses Anemia D64.9 Bloody stool K92.1 Thrombocytopenia D69.6 Comment This documentation concerns of visit performed 10/02/2023
[2023-10-03 07:00] LABS: Hematocrit (blood only) 26.8 % (37.0-47.0); Hemoglobin 9.3 g/dl (12.0-16.0); Mean Corpuscular Hemoglobin 31.5 pg (25.0-34.0); Mean Corpuscular Hgb Conc 34.7 g/dL (32.0-36.0); Mean Corpuscular Volume 90.8 fL (80.0-100.0); Platelet Count 11 K/uL (130-400); RDW Coefficient of Variation 14.8 % (11.5-14.5); RDW Standard Deviation 48.8 fL (36.4-46.3); Red Blood Count 2.95 M/uL (4.20-5.40); White Blood Count 7.01 K/ul (4.8-10.8)
[2023-10-03 07:21] LABS: BUN Creatinine Ratio 40.7 (10-20); Calcium 8.5 mg/dl (8.6-10.3); Creatinine Clr Calc Pharmacy 45.8 ml/min; Est GFR (African American) 73.9 ml/min; Est GFR (Non-African American) 63.8 ml/min; Magnesium 1.7 mg/dl (1.7-2.4); Potassium 4.1 mmol/L (3.5-5.1)
[2023-10-03 07:33] LABS: Basophils # (auto) 0.01 K/uL (0.00-0.20); Basophils % (auto) 0.1 %; Immature Granulocytes # (auto) 0.08 K/uL (0.01-0.20); Immature Granulocytes % (auto) 1.1 %; Lymphocytes # (auto) 0.98 K/uL (1.20-3.40); Monocytes # (auto) 0.21 K/uL (0.11-0.59); Neutrophils # (auto) 5.73 K/uL (1.40-6.50); Neutrophils % (auto) 81.8 %; Polychromasia 1+
--- NOTE | 2023-10-03 08:05 | Hospitalist Progress Note ---
Date of Service October 03, 2023 Assessment & Plan (1) Thrombocytopenia: Plan: 78yo F presented to the ED with mucosal mouth sores, easy bruising, and petechiae on the BL LE's which began day prior to admission * Recent start Bactrim 2nd to toe cellulitis 09/23 * DDx ?Angel Bhavik/TEN reaction w/ mucosal involvement, ?DRESS, ?Acute generalized exanthematous pustulosis * No elevated eosinophils on differential * Plt 0, suggestive of ITP vs drug reaction from bactrim? CBC otherwise stable Presentation most c/w ITP, likely from infection to L great toe vs from Bactrim use given rash Does not appear c/w SJS on exam Heme/onc consulted (spoke w/ allergy immunology on admit as well) Blood consult obtained, T/S on admission. LDH wnl. Hepatitis panel negative Peripheral smear w/o features of MDS Holding all anticoagulants/antiplatelets, home aspirin on hold Given 65gm IV immune globulin, repeated dose 10/01 - no further Continue Dexamethasone 40mg IV daily x 5 (last IV dose 10/04) prior to transition to PO steroid + bloody/gelatinous stool reported overnight 10/01-10/02, made NPO/IVF, increased protonix IV BID and GI consulted but low plts/no scope and suspect mucosal bleeding cause given low platelets Given 1u PRBC and 1u of platelets 10/02 Hgb stable/improved to 9.3. No further bleeding reported overnight Diet advanced Plts to 14--> 11. Discussed w/ heme/onc this morning and will order additional unit of platelets and monitor over next 36 hours with regards to spontaneous recovery Monitor labs on repeat (2) Hyperkalemia: Plan: K 6.2 on arrival, EKG stable. Likely due to LEROY. LDH wnl, no signs hemolysis Given 1gm Ca gluconate, IV insulin, dextrose and IVF on admission and provided lokemla x 1 overnight K stable, down to 4.1. Renal function stable/improved and back to baseline Will plan to resume lisinopril in AM and monitor for any issues w/ hyperkalemia prior to dc (3) Toe infection: Plan: Seen by PCP 09/23, imaging negative for osteo Placed on bactrim 09/23, developed above thrombocytopenia/rash --> HOLDING FURTHER, pLACED ON ALLERGY LIST Repeat xray WITHOUT osteomyelitis Placed on ceftriaxone on admission , continued Does not appear overly infected on exam and will monitor She had been using topical voltaren to area, prior developed this ulceration 2nd to tight fitting shoes when attending wedding last month (4) LEROY (acute kidney injury): Plan: Cr 1.7, baseline ~1.3. ?combination dehydration/recent bactrim use vs other Holding home lisinopril, given IVF on admission Cr back to baseline, Cr 0.86 Lisinopril prior on hold, plan to resume in AM. Monitor for any hyperkalemia Renal dose meds/avoid nephrotoxins Monitor BMP (5) Dementia: Plan: Continue Donepezil alert/oriented for myself during encounter supportive care (6) Hypothyroidism: Plan: Continue levothyroxine No recent TSH in system. Will not repeat w/ acute infection/reaction as likely would be elevated (7) HTN (hypertension): Plan: Hold lisinopril with possible LEROY (now resolved, consider resuming tomorrow) Can continue amlodipine for now -- BP 148/65 Monitor (8) Gout: Plan: Continue allopurinol ? 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 Agrees w/ acute ITP, no evidence for SJS (11) Acute hyperkalemia: Plan: as above, stable on repeat. monitor for ability to resume lisinopril (resuming AM 10/04) (12) Bloody stool: Plan: overnight x 1 reported. + fecal occult. Was made NPO/IVF ordered given plt, stable vitals, GI consulted but obv w/ low plt no intervention. Agree w/ PPI BID, trend CBC No further bleeding, plts as above and montior Diet advanced (13) Anemia: Plan: Hgb 8 from 10 prior + fecal occult Heme/onc consulted as above, 1u PRBC/1 platelet Hgb/plts improved and stable without further bleeding. Additional plts this mornign as above Continue PPI IV BID CBC in AM Plan continued inpatient stay, updated PT evals to be undertaken (lives alone w/ ) Admission and Anticipated Discharge Date Admission Date: September 30, 2023 Supervising Physician Co-Signing Physician Notes The patient was not seen by me. The chart was reviewed. Case discussed with RADHA Moore. Agree with assessment and plan Subjective Eval this morning, sitting up in recliner, looks much improved. No fever/chills, chest pain, shortness of breath. No further bleeding reported, hgb stable. Plts improved and will plan additional unit this morning. at bedside. Inquiring about going home, he thought she might be going home. Discussed rehab recommended but if monitoring on steroids over the weekend and improvements with therapy and labs stable can consider dc on Friday to home w/ family. Will [facility] to [facility]. Physical Exam Physical Exam: General: WD/WN female sitting up in recliner, NAD, at bedside HEENT: head atraumatic, normocephalic, mmm, SIGNIFICANT improvement in oral lesions/lip, trachea midline Resp: CTA, no w/c/r, on room air 97% CV: RRR, no significant m/r/g, trace LE edema, calves nontender GI: +BS, soft/NT : no bunn Msk/Neuro: no focal deficit, no slurred speech follows commands, strength equal bilaterally LEFT great toe w/ medial ulceration, nontender, no drainage Skin: petechial rash to bilateral lower extremities as well as back/torso -- NOT WORSENED Psych: AOx3, cooperative with exam Results & Data Results & Data Vital Signs (Past 12 Hours) Vital Signs Temp Pulse Pulse Resp BP BP Pulse Ox 10/03/23 07:30 36.8 C 56 L 18 148/65 H 97 10/03/23 03:22 36.6 C 63 18 153/66 H 96 10/02/23 23:06 36.5 C 60 18 144/64 H 96 10/02/23 22:52 60 O2 Del Method 10/03/23 07:30 Room Air 10/03/23 03:22 Room Air 10/02/23 23:06 Room Air 10/02/23 22:52 Laboratory Results 10/03/23 10/02/2310/02/23 Range/Units 06:28 17:59 17:59 WBC 7.01 (4.8-10.8) K/ul RBC 2.95 L (4.20-5.40) M/uL Hgb 9.3 L 9.0 L (12.0-16.0) g/dl Hct 26.8 L 26.9 L 26.9 L (37.0-47.0) % MCV 90.8 94.7 (80.0-100.0) fL MCH 31.5 31.7 (25.0-34.0) pg MCHC 34.7 33.5 (32.0-36.0) g/dL RDW Std Deviation 48.8 H 49.2 H (36.4-46.3) fL RDW Coeff of Alexandra 14.8 H 14.4 (11.5-14.5) % Plt Count 11 L* 14 L* D (130-400) K/uL Immature Gran % (Auto) 1.1 0.9 % Neut % (Auto) 81.8 87.9 % Lymph % (Auto) 14.0 9.9 % Harnett % (Auto) 3.0 1.3 % Eos % (Auto) 0.0 0.0 % Baso % (Auto) 0.1 0.0 % Neut # (Auto) 5.73 7.62 H (1.40-6.50) K/uL Lymph # (Auto) 0.98 L 0.86 L (1.20-3.40) K/uL Harnett # (Auto) 0.21 0.11 (0.11-0.59) K/uL Eos # (Auto) 0.00 0.00 (0.00-0.50) K/uL Baso # (Auto) 0.01 0.00 (0.00-0.20) K/uL Immature Gran # (Auto) 0.08 0.08 (0.01-0.20) K/uL Platelet Estimate Signific. Decreased L (Normal) Polychromasia 1+ Sodium 135 L (136-145) mmol/L Potassium 4.1 (3.5-5.1) mmol/L Chloride 105 (98-107) mmol/L Carbon Dioxide 24 (21-32) mmol/L Anion Gap 6 (3-11) BUN 35 H (6-23) mg/dl Creatinine 0.86 (0.6-1.2) mg/dl Est Cr Clr Drug Dosing 45.8 ml/min Est GFR ( Amer) 73.9 ml/min Est GFR (Non-Af Amer) 63.8 ml/min BUN/Creatinine Ratio 40.7 H (10-20) Glucose 113 H (70-99(Fasting)) mg/dl Calcium 8.5 L (8.6-10.3) mg/dl Magnesium 1.7 (1.7-2.4) mg/dl Hepatitis A IgM Ab (NON-REACTIVE) Hep Bs Antigen (NON-REACTIVE) Hep Bs Ag Confirmation Hep B Core IgM Ab (NON-REACTIVE) Hepatitis C Ab (EIA) (NON-REACTIVE) HIV (1&2) Ag & Ab Conf (NON-REACTIVE) Blood Type Antibody Screen Crossmatch 10/02/23 09/30/23 09/30/23 Range/Units 17:59 16:53 14:45 WBC 8.67 (4.8-10.8) K/ul RBC 2.84 L (4.20-5.40) M/uL Hgb 8.9 L (12.0-16.0) g/dl Hct (37.0-47.0) % MCV (80.0-100.0) fL MCH (25.0-34.0) pg MCHC (32.0-36.0) g/dL RDW Std Deviation (36.4-46.3) fL RDW Coeff of Alexandra (11.5-14.5) % Plt Count (130-400) K/uL Immature Gran % (Auto) % Neut % (Auto) % Lymph % (Auto) % Harnett % (Auto) % Eos % (Auto) % Baso % (Auto) % Neut # (Auto) (1.40-6.50) K/uL Lymph # (Auto) (1.20-3.40) K/uL Harnett # (Auto) (0.11-0.59) K/uL Eos # (Auto) (0.00-0.50) K/uL Baso # (Auto) (0.00-0.20) K/uL Immature Gran # (Auto) (0.01-0.20) K/uL Platelet Estimate (Normal) Polychromasia Sodium (136-145) mmol/L Potassium (3.5-5.1) mmol/L Chloride (98-107) mmol/L Carbon Dioxide (21-32) mmol/L Anion Gap (3-11) BUN (6-23) mg/dl Creatinine (0.6-1.2) mg/dl Est Cr Clr Drug Dosing ml/min Est GFR ( Amer) ml/min Est GFR (Non-Af Amer) ml/min BUN/Creatinine Ratio (10-20) Glucose (70-99(Fasting)) mg/dl Calcium (8.6-10.3) mg/dl Magnesium (1.7-2.4) mg/dl Hepatitis A IgM Ab NON-REACTIVE (NON-REACTIVE) Hep Bs Antigen NON-REACTIVE (NON-REACTIVE) Hep Bs Ag Confirmation TNP Hep B Core IgM Ab NON-REACTIVE (NON-REACTIVE) Hepatitis C Ab (EIA) NON-REACTIVE (NON-REACTIVE) HIV (1&2) Ag & Ab Conf NON-REACTIVE (NON-REACTIVE) Blood Type O Positive Antibody Screen NEGATIVE Crossmatch See Detail PG Care Time/CCT Total # of Minutes Spent Total Time Spent with Patient: Total time spent is greater than 50% in coordination of care (as documented) at patient's floor/unit and/or counseling patient: Coding Level of Care Code 96831 SUB INP/OBS CARE 3/50MIN Diagnoses Thrombocytopenia D69.6 Hyperkalemia E87.5 Toe infection L08.9 LEROY (acute kidney injury) N17.9 Dementia F03.90 Hypothyroidism E03.9 HTN (hypertension) I10 Gout M10.9 GERD (gastroesophageal reflux disease) K21.9 Acute idiopathic thrombocytopenic purpura D69.3 Acute hyperkalemia E87.5 Bloody stool K92.1 Anemia D64.9
[2023-10-03] MEDS: amLODIPine BESYLATE 5 MG TAB PO SCH (08:57)
[2023-10-03] MEDS: dexAMETHasone 40 MG in DEXTROSE 5% 25 ML IV SCH (08:57)
[2023-10-03] MEDS: FOLIC ACID 1 MG TAB PO SCH (08:57)
[2023-10-03] MEDS: PANTOprazole 40 MG in SYRINGE 0 ML IV SCH ×2 (08:57→20:09)
[2023-10-03] MEDS: CYANOCOBALAMIN (B-12) 500 MCG TABLET PO SCH (08:58)
[2023-10-03] MEDS: allopurinoL 100 MG TAB PO SCH (08:58)
[2023-10-03] MEDS: OXYBUTYNIN CHLORIDE XL 5 MG TABCR PO SCH (08:58)
[2023-10-03] MEDS: cefTRIAXone SODIUM 2,000 MG in DEXTROSE 5 % MINI-B 50 ML IV SCH (18:25)
[2023-10-03] MEDS: EZETIMIBE 10 MG TAB PO SCH (20:09)
[2023-10-03] MEDS: DONEPEZIL HCL 5 MG TAB PO SCH (20:09)
[2023-10-04] MEDS: LEVOTHYROXINE SODIUM 50 MCG TABLET PO SCH (05:48)
[2023-10-04 07:04] LABS: Basophils # (auto) 0.01 K/uL (0.00-0.20); Basophils % (auto) 0.1 %; Hematocrit (blood only) 26.2 % (37.0-47.0); Hemoglobin 9.1 g/dl (12.0-16.0); Immature Granulocytes # (auto) 0.27 K/uL (0.01-0.20); Immature Granulocytes % (auto) 3.6 %; Lymphocytes # (auto) 1.23 K/uL (1.20-3.40); Lymphocytes % (auto) 16.3 %; Mean Corpuscular Hemoglobin 31.6 pg (25.0-34.0); Mean Corpuscular Hgb Conc 34.7 g/dL (32.0-36.0); Mean Platelet Volume 14.6 fL (9.4-12.4); Monocytes # (auto) 0.44 K/uL (0.11-0.59); Monocytes % (auto) 5.8 %; Neutrophils % (auto) 74.2 %; Nucleated RBC # (auto) 0.05 K/uL (0.00-0.12); Nucleated RBC % (auto) 0.7 %; Platelet Count 30 K/uL (130-400); RDW Coefficient of Variation 14.2 % (11.5-14.5); RDW Standard Deviation 47.1 fL (36.4-46.3); Red Blood Count 2.88 M/uL (4.20-5.40); White Blood Count 7.55 K/ul (4.8-10.8)
[2023-10-04 07:52] LABS: BUN Creatinine Ratio 41.3 (10-20); Calcium 8.5 mg/dl (8.6-10.3); Creatinine Clr Calc Pharmacy 43.3 ml/min; Est GFR (African American) 68.2 ml/min; Est GFR (Non-African American) 58.8 ml/min; Magnesium 1.6 mg/dl (1.7-2.4); Potassium 3.8 mmol/L (3.5-5.1)
[2023-10-04] MEDS ORDERED: MAGNESIUM SULFATE / D5W 1 GM/100 ML BAG IV ONE (07:54)
--- NOTE | 2023-10-04 08:00 | Hospitalist Progress Note ---
Date of Service October 04, 2023 Assessment & Plan (1) Thrombocytopenia: Plan: 78yo F presented to the ED with mucosal mouth sores, easy bruising, and petechiae on the BL LE's which began day prior to admission * Recent start Bactrim 2nd to toe cellulitis 09/23 * DDx ?Angel Bhavik/TEN reaction w/ mucosal involvement, ?DRESS, ?Acute generalized exanthematous pustulosis * No elevated eosinophils on differential * Plt 0, suggestive of ITP vs drug reaction from bactrim? CBC otherwise stable Presentation most c/w ITP, likely from infection to L great toe vs from Bactrim use given rash Does not appear c/w SJS on exam Heme/onc consulted (spoke w/ allergy immunology on admit as well) Blood consult obtained, T/S on admission. LDH wnl. Hepatitis panel negative Peripheral smear w/o features of MDS Holding all anticoagulants/antiplatelets, home aspirin on hold Given 65gm IV immune globulin, repeated dose 10/01 - no further Continue Dexamethasone 40mg IV daily x 4 + bloody/gelatinous stool reported overnight 10/01-10/02, made NPO/IVF, increased protonix IV BID and GI consulted but low plts/no scope and suspect mucosal bleeding cause given low platelets Given 1u PRBC and 1u of platelets 10/02 Hgb stable/improved to 9.3. No further bleeding reported overnight Diet advanced Plts to 14--> 11. Discussed w/ heme/onc this morning and will order additional unit of platelets and monitor over next 36 hours with regards to spontaneous recovery 10/04 - Hgb stable 9.1, no further bleeding reported. Plts improved to 30. Last day IV dexamethasone (but review of chart patient did get dose in ER on 09/30 on admission, additional dosing 10/01-10/03 for total of [address] Ledesma) To stop further decadron. Recs to monitor another 24 hours given transfusion platelets yesterday Discussed w/ patient and 10/03 if stable/improving w/ therapy evals over the weekend could consider home w/ and HH services tomorrow vs recs for inpatient rehab for short while Monitor labs in AM (2) Hyperkalemia: Plan: K 6.2 on arrival, EKG stable. Likely due to LEROY. LDH wnl, no signs hemolysis Given 1gm Ca gluconate, IV insulin, dextrose and IVF on admission and provided lokemla x 1 overnight K stable, down to 4.1. Renal function stable/improved and back to baseline Resumed lisinopril 10/04, K 3.8 on AM labs Monitor BMP in AM for any issues (3) Toe infection: Plan: Seen by PCP 09/23, imaging negative for osteo Placed on bactrim 09/23, developed above thrombocytopenia/rash --> HOLDING FURTHER, pLACED ON ALLERGY LIST Repeat xray WITHOUT osteomyelitis Placed on ceftriaxone on admission , continued but will have completed prior to dc Does not appear overly infected on exam She had been using topical voltaren to area, prior developed this ulceration 2nd to tight fitting shoes when attending wedding last month (4) LEROY (acute kidney injury): Plan: Cr 1.7, baseline ~1.3. ?combination dehydration/recent bactrim use vs other Holding home lisinopril, given IVF on admission Cr back to baseline, Cr 0.92 Lisinopril prior on hold for LEROY, resumed this morning and will monitor BMP in AM Renal dose meds/avoid nephrotoxins Monitor BMP (5) Dementia: Plan: Continue Donepezil alert/oriented for myself during encounter supportive care (6) Hypothyroidism: Plan: Continue levothyroxine No recent TSH in system. Will not repeat w/ acute infection/reaction as likely would be elevated but can be checked in outpatient setting (7) HTN (hypertension): Plan: Held lisinopril with possible LEROY , now resolved Lisinopril resumed, continues on amlodipine BP 156/67 this morning Monitor (8) Gout: Plan: Continue allopurinol ? if prior redness from shoes more likely gout exacerbation however based on story given, more likely from ill fitting shoes (9) GERD (gastroesophageal reflux disease): Plan: IV Protonix daily while being treated with steroids --> increased to BID as below for blood in stool overnight 10/01 and will continue while on high dose steroids. 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 Agrees w/ acute ITP, no evidence for SJS (11) Acute hyperkalemia: Plan: as above, stable on repeat lisinopril resumed as above, K stable and will monitor after resuming on am labs (12) Bloody stool: Plan: overnight x 1 reported. + fecal occult. Was made NPO/IVF ordered given plt, stable vitals, GI consulted but obv w/ low plt no intervention. Agree w/ PPI BID, trend CBC No further bleeding, plts as above and monitor Moving bowels, some darkend color but could be from mucosal bleeding making its way through no abdominal pain/hgb stable on repeat and VSS stable. Monitor (13) Anemia: Plan: Hgb 8 from 10 prior + fecal occult Heme/onc consulted as above, 1u PRBC/1 platelet following bloody stool, repeat platelets for 10/03 and improved Continue ppi bid for now and monitor CBC Plan continued inpatient stay, updated at bedside will monitor platelets in AM and if continued improvement/no further bleeding can see about having therapy eval for possible dc to home but otherwise will remain inpatient though Friday Admission and Anticipated Discharge Date Admission Date: September 30, 2023 Supervising Physician Co-Signing Physician Notes The patient was not seen by me. The chart was reviewed. Case discussed with RADHA Moore. Agree with assessment and plan Subjective Evaluated this morning, at bedside. Patient looking/feeling much better. No bleeding, platelets to 30. Discussed no further steroids. She did have a darkened stool but suspect from prior mucosal bleeding making it's way through. No abdominal pain, good appetite. Discussed as she would like to go home if continued improvement in labs will see about having therapy come to eval her tomorrow. If not stable enough for dc can always see about re-eval friday. Will need outpt monitoring of labs. Questions/concerns addressed at this time. Physical Exam Physical Exam: General: WD/WN female sitting up in recliner, NAD, at bedside HEENT: head atraumatic, normocephalic, mmm, SIGNIFICANT improvement in oral lesions/lip, trachea midline Resp: CTA, no w/c/r, on room air CV: RRR, no significant m/r/g, trace LE edema, calves nontender GI: +BS, soft/NT : no bunn Msk/Neuro: no focal deficit, no slurred speech follows commands, strength equal bilaterally LEFT great toe w/ medial ulceration, nontender, no drainage Skin: petechial rash to bilateral lower extremities as well as back/torso -- NOT WORSENED (improving) Psych: AOx3, cooperative with exam Results & Data Results & Data Vital Signs (Past 12 Hours) Vital Signs Temp Pulse Pulse Resp BP BP Pulse Ox 10/04/23 07:49 36.7 C 62 16 155/61 H 95 10/04/23 03:56 36.7 C 60 18 154/63 H 97 10/03/23 23:18 36.5 C 65 18 169/70 H 96 10/03/23 22:00 60 O2 Del Method 10/04/23 07:49 Room Air 10/04/23 03:56 Room Air 10/03/23 23:18 Room Air 10/03/23 22:00 Laboratory Results 10/04/23 Range/Units 06:33 WBC 7.55 (4.8-10.8) K/ul RBC 2.88 L (4.20-5.40) M/uL Hgb 9.1 L (12.0-16.0) g/dl Hct 26.2 L (37.0-47.0) % MCV 91.0 (80.0-100.0) fL MCH 31.6 (25.0-34.0) pg MCHC 34.7 (32.0-36.0) g/dL RDW Std Deviation 47.1 H (36.4-46.3) fL RDW Coeff of Alexandra 14.2 (11.5-14.5) % Plt Count 30 L D (130-400) K/uL MPV 14.6 H (9.4-12.4) fL Immature Gran % (Auto) 3.6 % Neut % (Auto) 74.2 % Lymph % (Auto) 16.3 % [place] % (Auto) 5.8 % Eos % (Auto) 0.0 % Baso % (Auto) 0.1 % Neut # (Auto) 5.60 (1.40-6.50) K/uL Lymph # (Auto) 1.23 (1.20-3.40) K/uL [place] # (Auto) 0.44 (0.11-0.59) K/uL Eos # (Auto) 0.00 (0.00-0.50) K/uL Baso # (Auto) 0.01 (0.00-0.20) K/uL Immature Gran # (Auto) 0.27 H (0.01-0.20) K/uL Absolute Nucleated RBC 0.05 (0.00-0.12) K/uL Nucleated RBC % (auto) 0.7 % Sodium 135 L (136-145) mmol/L Potassium 3.8 (3.5-5.1) mmol/L Chloride 104 (98-107) mmol/L Carbon Dioxide 24 (21-32) mmol/L Anion Gap 7 (3-11) BUN 38 H (6-23) mg/dl Creatinine 0.92 (0.6-1.2) mg/dl Est Cr Clr Drug Dosing 43.3 ml/min Est GFR ( Amer) 68.2 ml/min Est GFR (Non-Af Amer) 58.8 ml/min BUN/Creatinine Ratio 41.3 H (10-20) Glucose 127 H (70-99(Fasting)) mg/dl Calcium 8.5 L (8.6-10.3) mg/dl Magnesium 1.6 L (1.7-2.4) mg/dl PG Care Time/CCT Total # of Minutes Spent Total Time Spent with Patient: Total time spent is greater than 50% in coordination of care (as documented) at patient's floor/unit and/or counseling patient: Coding Level of Care Code 68558 SUB INP/OBS CARE 3/50MIN Diagnoses Thrombocytopenia D69.6 Hyperkalemia E87.5 Toe infection L08.9 LEROY (acute kidney injury) N17.9 Dementia F03.90 Hypothyroidism E03.9 HTN (hypertension) I10 Gout M10.9 GERD (gastroesophageal reflux disease) K21.9 Acute idiopathic thrombocytopenic purpura D69.3 Acute hyperkalemia E87.5 Bloody stool K92.1 Anemia D64.9
[2023-10-04] MEDS: allopurinoL 100 MG TAB PO SCH (08:41)
[2023-10-04] MEDS: OXYBUTYNIN CHLORIDE XL 5 MG TABCR PO SCH (08:41)
[2023-10-04] MEDS: PANTOprazole 40 MG in SYRINGE 0 ML IV SCH ×2 (08:41→20:23)
[2023-10-04] MEDS: FOLIC ACID 1 MG TAB PO SCH (08:41)
[2023-10-04] MEDS: amLODIPine BESYLATE 5 MG TAB PO SCH (08:41)
[2023-10-04] MEDS: lisinopril 10 MG TAB PO SCH (08:41)
[2023-10-04] MEDS: CYANOCOBALAMIN (B-12) 500 MCG TABLET PO SCH (08:42)
[2023-10-04] MEDS: cefTRIAXone SODIUM 2,000 MG in DEXTROSE 5 % MINI-B 50 ML IV SCH (17:02)
[2023-10-04] MEDS: DONEPEZIL HCL 5 MG TAB PO SCH (20:23)
[2023-10-04] MEDS: EZETIMIBE 10 MG TAB PO SCH (20:23)
[2023-10-05] MEDS: LEVOTHYROXINE SODIUM 50 MCG TABLET PO SCH (05:44)
[2023-10-05 07:49] LABS: Hematocrit (blood only) 27.2 % (37.0-47.0); Hemoglobin 9.3 g/dl (12.0-16.0); Mean Corpuscular Hemoglobin 31.6 pg (25.0-34.0); Mean Corpuscular Hgb Conc 34.2 g/dL (32.0-36.0); Mean Corpuscular Volume 92.5 fL (80.0-100.0); Mean Platelet Volume 13.7 fL (9.4-12.4); Nucleated RBC # (auto) 0.16 K/uL (0.00-0.12); Nucleated RBC % (auto) 1.4 %; Platelet Count 53 K/uL (130-400); RDW Coefficient of Variation 14.4 % (11.5-14.5); Red Blood Count 2.94 M/uL (4.20-5.40); White Blood Count 11.58 K/ul (4.8-10.8)
--- NOTE | 2023-10-05 07:49 | Hospitalist Progress Note ---
Date of Service October 05, 2023 Assessment & Plan (1) Thrombocytopenia: Plan: 78yo F presented to the ED with mucosal mouth sores, easy bruising, and petechiae on the BL LE's which began day prior to admission * Recent start Bactrim 2nd to toe cellulitis 09/23 * DDx ?Angel Bhavik/TEN reaction w/ mucosal involvement, ?DRESS, ?Acute generalized exanthematous pustulosis * No elevated eosinophils on differential * Plt 0, suggestive of ITP vs drug reaction from bactrim? CBC otherwise stable Presentation most c/w ITP, likely from infection to L great toe vs from Bactrim use given rash Does not appear c/w SJS on exam Heme/onc consulted (spoke w/ allergy immunology on admit as well) Blood consult obtained, T/S on admission. LDH wnl. Hepatitis panel negative Peripheral smear w/o features of MDS Holding all anticoagulants/antiplatelets, home aspirin on hold Given 65gm IV immune globulin, repeated dose 10/01 - no further Dexamethasone 40mg IV daily x 4 + bloody/gelatinous stool reported overnight 10/01-10/02, made NPO/IVF, increased protonix IV BID and GI consulted but low plts/no scope and suspect mucosal bleeding cause given low platelets Given 1u PRBC and 1u of platelets 10/02 Hgb stable/improved to 9.3. No further bleeding reported overnight Diet advanced Plts to 14--> 11. Discussed w/ heme/onc this morning and will order additional unit of platelets and monitor over next 36 hours with regards to spontaneous recovery 10/04 - Hgb stable 9.1, no further bleeding reported. Plts improved to 30. Last day IV dexamethasone (but review of chart patient did get dose in ER on 09/30 on admission, additional dosing 10/01-10/03 for total of [address] Ledesma) To stop further decadron. Recs to monitor another 24 hours given transfusion platelets yesterday Discussed w/ patient and 10/03 if stable/improving w/ therapy evals over the weekend could consider home w/ and HH services tomorrow vs recs for inpatient rehab for short while Monitor labs in AM 115 - (2) Hyperkalemia: Plan: K 6.2 on arrival, EKG stable. Likely due to LEROY. LDH wnl, no signs hemolysis Given 1gm Ca gluconate, IV insulin, dextrose and IVF on admission and provided lokemla x 1 overnight K stable, down to 4.1. Renal function stable/improved and back to baseline Resumed lisinopril 10/04, K 3.8 on AM labs Monitor BMP in AM for any issues (3) Toe infection: Plan: Seen by PCP 09/23, imaging negative for osteo Placed on bactrim 09/23, developed above thrombocytopenia/rash --> HOLDING FURTHER, pLACED ON ALLERGY LIST Repeat xray WITHOUT osteomyelitis Placed on ceftriaxone on admission , continued but will have completed prior to dc Does not appear overly infected on exam She had been using topical voltaren to area, prior developed this ulceration 2nd to tight fitting shoes when attending wedding last month (4) LEROY (acute kidney injury): Plan: Cr 1.7, baseline ~1.3. ?combination dehydration/recent bactrim use vs other Holding home lisinopril, given IVF on admission Cr back to baseline, Cr 0.92 Lisinopril prior on hold for LEROY, resumed this morning and will monitor BMP in AM Renal dose meds/avoid nephrotoxins Monitor BMP (5) Dementia: Plan: Continue Donepezil alert/oriented for myself during encounter supportive care (6) Hypothyroidism: Plan: Continue levothyroxine No recent TSH in system. Will not repeat w/ acute infection/reaction as likely would be elevated but can be checked in outpatient setting (7) HTN (hypertension): Plan: Held lisinopril with possible LEROY , now resolved Lisinopril resumed, continues on amlodipine BP 156/67 this morning Monitor (8) Gout: Plan: Continue allopurinol ? if prior redness from shoes more likely gout exacerbation however based on story given, more likely from ill fitting shoes (9) GERD (gastroesophageal reflux disease): Plan: IV Protonix daily while being treated with steroids --> increased to BID as below for blood in stool overnight 10/01 and will continue while on high dose steroids. 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 Agrees w/ acute ITP, no evidence for SJS (11) Acute hyperkalemia: Plan: as above, stable on repeat lisinopril resumed as above, K stable and will monitor after resuming on am labs (12) Bloody stool: Plan: overnight x 1 reported. + fecal occult. Was made NPO/IVF ordered given plt, stable vitals, GI consulted but obv w/ low plt no intervention. Agree w/ PPI BID, trend CBC No further bleeding, plts as above and monitor Moving bowels, some darkend color but could be from mucosal bleeding making its way through no abdominal pain/hgb stable on repeat and VSS stable. Monitor (13) Anemia: Plan: Hgb 8 from 10 prior + fecal occult Heme/onc consulted as above, 1u PRBC/1 platelet following bloody stool, repeat platelets for 10/03 and improved Continue ppi bid for now and monitor CBC Plan continued inpatient stay, updated at bedside will monitor platelets in AM and if continued improvement/no further bleeding can see about having therapy eval for possible dc to home but otherwise will remain inpatient though Friday Admission and Anticipated Discharge Date Admission Date: September 30, 2023 Results & Data Results & Data Vital Signs (Past 12 Hours) Vital Signs Temp Pulse Pulse Resp BP Pulse Ox O2 Del Method 10/05/23 07:26 60 10/05/23 03:00 36.9 C 57 L 14 141/61 H 96 Room Air 10/04/23 23:20 60 10/04/23 23:00 36.9 C 58 L 14 147/64 H 96 Room Air PG Care Time/CCT Total # of Minutes Spent Total Time Spent with Patient: Total time spent is greater than 50% in coordination of care (as documented) at patient's floor/unit and/or counseling patient: Coding Diagnoses Thrombocytopenia D69.6 Hyperkalemia E87.5 Toe infection L08.9 LERYO (acute kidney injury) N17.9 Dementia F03.90 Hypothyroidism E03.9 HTN (hypertension) I10 Gout M10.9 GERD (gastroesophageal reflux disease) K21.9 Acute idiopathic thrombocytopenic purpura D69.3 Acute hyperkalemia E87.5 Bloody stool K92.1 Anemia D64.9
[2023-10-05 08:03] LABS: BUN Creatinine Ratio 45.6 (10-20); Creatinine Clr Calc Pharmacy 50.4 ml/min; Est GFR (African American) 81.9 ml/min; Est GFR (Non-African American) 70.7 ml/min; Magnesium 1.7 mg/dl (1.7-2.4); Potassium 3.4 mmol/L (3.5-5.1)
[2023-10-05 08:04] LABS: Basophils # (auto) 0.04 K/uL (0.00-0.20); Basophils % (auto) 0.3 %; Eosinophils # (auto) 0.01 K/uL (0.00-0.50); Eosinophils % (auto) 0.1 %; Immature Granulocytes # (auto) 0.55 K/uL (0.01-0.20); Immature Granulocytes % (auto) 4.7 %; Lymphocytes # (auto) 3.15 K/uL (1.20-3.40); Lymphocytes % (auto) 27.2 %; Monocytes # (auto) 1.14 K/uL (0.11-0.59); Monocytes % (auto) 9.8 %; Neutrophils # (auto) 6.69 K/uL (1.40-6.50); Neutrophils % (auto) 57.9 %; Polychromasia 1+
[2023-10-05] MEDS ORDERED: POTASSIUM CHLORIDE CRTAB 20 MEQ TABCR PO STA (08:29)
[2023-10-05] MEDS ORDERED: MAGNESIUM SULFATE / D5W 1 GM/100 ML BAG IV ONE (08:29)
[2023-10-05] MEDS: OXYBUTYNIN CHLORIDE XL 5 MG TABCR PO SCH (09:03)
[2023-10-05] MEDS: amLODIPine BESYLATE 5 MG TAB PO SCH (09:03)
[2023-10-05] MEDS: PANTOprazole 40 MG in SYRINGE 0 ML IV SCH (09:03)
[2023-10-05] MEDS: lisinopril 10 MG TAB PO SCH (09:03)
[2023-10-05] MEDS: CYANOCOBALAMIN (B-12) 500 MCG TABLET PO SCH (09:03)
[2023-10-05] MEDS: allopurinoL 100 MG TAB PO SCH (09:03)
[2023-10-05] MEDS: FOLIC ACID 1 MG TAB PO SCH (09:03)
--- NOTE | 2023-10-05 11:36 | Discharge Summary ---
Date of Service October 05, 2023 Admission HPI Per Admitting Provider Regina is an 78 year old female with a PMH significant for Dementia, Gout, HTN, hypothyroidism, hyperlipidemia, sinus node dysfunction S/P dual chamber pacemaker placement who presented to the [facility] ED on 09/30 with complaints of mouth sores and easy bruising which started over the weekend. Per the ED, the patient was recently started on Bactrim by her PCP for cellulitis of the toe. Since then she has been developing mouth sores, a bloody nose when blowing her nose, and a BL LE rash. She remained stable in the ED. Labs were significant for a platelet count of 0, lymphocyte count of 0.92 but otherwise stable CBC, cr of 1.72 (baseline is near 1.3), potassium of 6.2, sodium of 134, and UA with turbid urine, 2+ blood, 5-10, and > 30 epithelial cells. Heme/Onc and allergy/immunology were contacted by the ED to assist with evaluation and treatment. At this time the patient was given 40 mg IV dexamethasone and will be started on IVIG shortly. At this time the patient has been deemed stable to stay at our facility from the perspective of allergy/immunology and heme/onc. At the time of the exam the patient was sitting in bed in no acute distress with her sitting bedside, history was obtained from both. The patient had been in her normal state of health when they went to a wedding on 09/19. She states that she worse new shoes that cause a blister/sore on the medial aspect of her left great toe. She was seen by her on 09/23. Xray of the great left toe on 09/23 showed soft tissue swelling but was negative for osseous involvement. She was started on a 10 day course of Bactrim on 09/23. Yesterday the patient started to develop sores on the mucus membranes of her mouth along with bleeding while blowing her nose and petechiae on her BL legs, which she noticed this am. She denies recent fever, chills, SOB, chest pain, abd pain, nausea, vomiting, diarrhea, dysuria, hematuria, melena, bright blood in her stool, LE swelling, and recent trauma. We discussed code status, she is a full code and would want her and daughter to make medical decisions for her is she cannot make them herself. Please refer to Dr. Ojeda's attestation for any changes to the treatment plan Admission Exam Per Admitting Provider Physical Exam: General: In no acute distress, stated age, well-nourished, good hygiene, non- toxic appearing HEENT: Normocephalic, atraumatic, no scleral icterus, pupils around round, symmetrical, and reactive to light, patient with dry mucus membranes and scattered sores on the mucus membranes of the mouth with signs of recent bleeding but no acute bleeding at this time , trachea midline, no thyromegaly Chest/Pulm: No respiratory distress, symmetrical chest expansion, clear breath sounds throughout Cardiac: RRR, no murmurs noted Abdomen: Negative for ascites and bruising, normoactive bowel sounds, soft, non- tender to palpation throughout Musculoskeletal: Patient with minimally swollen left great toe without signs of drainage, darker areas near the medial aspect of the left great toe wound, patient with intact motor function in the BL feet, no other acute abnormalities noted Extremities: Radial, dorsalis pedis, and posterior tibial pulses are intact and symmetrical, no edema noted in the BL LE's Skin: Patient with petechiae over the BL LE's without other signs of bleeding/hemorrhage Neuro: Alert and oriented to person, place, month, no focal defects, CN II-XII tested and intact, no tremors noted Psych: No acute distress, pleasantly confused at times, calm and cooperative during the exam Principal Diagnosis Thrombocytopenia, ITP vs Drug induced thrombocytopenia Discharge Exam General: WD/WN female sitting up in recliner, NAD, at bedside HEENT: head atraumatic, normocephalic, mmm, SIGNIFICANT improvement in oral lesions/lip, trachea midline Resp: CTA, no w/c/r, on room air CV: RRR, no significant m/r/g, trace LE edema, calves nontender GI: +BS, soft/NT : no bunn Msk/Neuro: no focal deficit, no slurred speech follows commands, strength equal bilaterally LEFT great toe w/ medial ulceration, nontender, no drainage Skin: petechial rash to bilateral lower extremities as well as back/torso -- NOT WORSENED (improving) Psych: AOx3, cooperative with exam Discharge Data Allergies Allergy/AdvReac Type Severity Reaction Status Date / Time sulfamethoxazole AdvReac Severe Rash Verified 10/01/23 06:26 [From Bactrim] trimethoprim [From Bactrim] AdvReac Severe Rash Verified 10/01/23 06:26 Consultations 09/30/23 14:36 ED Decision to Admit Stat 09/30/23 15:20 Consult Hematology Stat 10/01/23 14:47 Consult Dermatology Routine 10/02/23 08:49 Consult Gastroenterology Routine Ordered Studies Toe X-Ray 09/30/23 15:24 XR toe(s) LT min 2V CLINICAL HISTORY: left great toe infection TECHNIQUE: 3 views of the left first digit were obtained. Comparison: None available at the time of this dictation. FINDINGS: There is no evidence of erosive change to suggest osteomyelitis. Joint spaces are well-preserved. Soft tissue swelling is seen about the digit. IMPRESSION: Soft tissue swelling without underlying erosive change to suggest osteomyelitis. ACT 112: Negative or not required by law. Electronically signed by: Sai Johnson M.D. 09/30/2023 4:25 PM Hospital Course (1) Thrombocytopenia: 78yo F presented to the ED with mucosal mouth sores, easy bruising, and petechiae on the BL LE's which began 09/29 after starting Bactrim for 2nd toe cellulitis on 09/23 Presentation most c/w ITP, likely from infection to L great toe vs from bactrim given rash on admission. No evidence fro SJS/TEN as initially concerned w/ mucosal involvement however bleeding to mouth w/ low platelets Hematology/oncology consulted while inpatient as well as dermatology, and was discussed w/ allergy/immunology in ER on admission LDH wnl, hepatitis panel negative Peripheral smear w/o features of MDS Home aspirin and celebrex placed on hold on admisison Placed on Dexamethasone 40mg IV x 4 days (completed 09/02) and given IV immune globulin 65mg x 2 doses per discussion w/ Dr Ledesma Had episode of blood in stool overnight 10/01 and consultation w/ GI undertaken. Increased protonix to IV BID while on steroids -GI suspected mucosal bleeding from low platelet counts but given bleeding, decision to provide 1u PRBC w/ 1u platelets on 10/02 and given prior bleeding did give additional unit of platelets on 10/03 per discussion w/ Dr Ledesma. No inpatient intervention Responded nicely to transfusion and no further mayank bleeding, VSS with normal creatinine in follow up Discussed with Dr Ledesma given patient wishes to return home, platelets >50k on AM labs 10/05 and ok for discharge. Did ask PT to re-eval patient for safety and did great with walker, rx provided to CM and given walker prior to DC. Will need to purchase shower chair out of pocket per CM. Daughter w/ concerns about falls w/ her mothers neuropathy at baseline and risk for bleeding, however discussed patient/ wishes and therapy evaluations and felt stable for discharge w/ continued use of assistive device for stability. Heme/onc ok with her resuming her home aspirin at dc but patient and family on fence and can be held until repeat labs on Friday to ensure continued imp rovement. Also instructed patient to AVOID her celebrex for any pain at home and to use tylenol as needed Repeated CBC prior to just to be safe, platelets further elevated to 68k, no active bleeding. Did have prior darkened stools after initial gelatinous BM, however could have been passing through her system from upper mucosal bleeding and had been documentation clerk on repeat. WBC elevated but ?delayed reaction to steroids, has been afebrile and hgb stable and improved on repeat. Continued protonix twice daily for next week or two to prevent any bleeding and can reduce to once daily in follow up with primary care/hematology/oncology. Discussed w/ patient and to RETURN TO ER IF HAVING ANY WORSENING OF HER RASH/PURPURIC RASH OR FOR ANY BLEEDING FROM URINE OR STOOL. TO monitor for any worsening purpuric rash/bleeding from /GI and to return to ER if this occurs. (2) Hyperkalemia: K 6.2 on arrival, EKG stable. Suspected 2nd to LEROY, however suspect from bactrim/lisinopril use Given IV calcium gluconate/IV insulin and dextrose w/ IVF on admission, repeat remained elevated and did get 1x dose lokemla Her home lisinopril was held and K trended down on repeat w/ discontinuation of bactrim and renal function back to baseline and K actually 3.3-3.4 prior to days w/ supplementation provided and lisinopril resumed BMP ordered for repeat on friday w/ her CBC to ensure continues to remain stable (3) Toe infection: Seen by PCP 09/23, imaging negative for osteo Placed on bactrim 09/23, developed above thrombocytopenia/rash --> HOLDING FURTHER, pLACED ON ALLERGY LIST Repeat xray WITHOUT osteomyelitis Got course of IV ceftriaxone while inpatient, did not appear infected on exam/more ulceration To wash w/ soap/water and let open to air dry per wound RN instructions. Instructed patient to wear well padded shoes and avoid tight fitting shoes to prevent any further issues as she reports she had been wearing tight shoes when attending wedding last month that caused the initial injury (4) LEROY (acute kidney injury): Cr 1.7, baseline ~1.3. ?combination dehydration/recent bactrim use vs other Holding home lisinopril, given IVF on admission Cr back to baseline and lisinopril resumed and remained stable without elevation in her potassium level Renally dosed medications/avoided nephrotoxins while inpatient Repeat BMP this week to ensure stable electrolytes/renal function with her blood count/platelets (5) Dementia: Continued Donepezil, alert/oriented for myself but has memory issues at baseline. B12 wnl Supportive care, appeared at baseline (6) Hypothyroidism: Continued levothyroxine No recent TSH in system. Did not repeat w/ acute infection/reaction as likely would be elevated but can be checked in outpatient setting with primary care (7) HTN (hypertension): Held lisinopril with possible LEROY , now resolved and resumed BPs remaining stable on lisinopril and home amlodipine, 154/63 prior to discharge (8) Gout: Continue allopurinol ? if prior redness from shoes more likely gout exacerbation however based on story given, more likely from ill fitting shoes consider checking uric acid in f/u if any issues in the future (9) GERD (gastroesophageal reflux disease): IV Protonix daily while being treated with steroids --> increased to BID as below for blood in stool overnight 10/01 and will continued while on high dose steroids but decision to continue for additional 2 weeks at discharge given prior suspected mucosal bleeding however hgb remaining stable, GI consulted while inpatient Can resume home omeprazole in f/u with PCP/hematology onc (10) Acute idiopathic thrombocytopenic purpura: as above, heme/onc consulted, seen by Dr Artis for consideration more sinister process. Agrees w/ acute ITP, no evidence for SJS (11) Bloody stool: overnight x 1 reported. + fecal occult. Was made NPO/IVF ordered given plt, stable vitals, GI consulted but obv w/ low plt no intervention. Agree w/ PPI BID, trend CBC No further bleeding, plts as above and hgb stable and improved on repeat no further bloody stools reported, did have a darkened BM previously likely from older blood but had light brown following NO ABDOMINAL PAIN, VSS Discussed continue ppi bid at dc for next 1-2 weeks, to return to ER if any blood in urine/stool or worsened rash as above (12) Anemia: Hgb 8 from 10 prior + fecal occult Heme/onc consulted as above, 1u PRBC/1 platelet following bloody stool, repeat platelets for 10/03 and improved and continued improvement on repeat labs continuing ppi for prevention given mucosal bleeding, repeating labs mid-week this upcoming week and to have f/u outpatient with heme/onc Again, to return to ER if any bleeding occurs Plan discharged home w/ anna marie and elisa, repeat labs on Friday Total Time Total Time Spent Total Time Spent (In Minutes): 55 Discharge Plan Discharge Items Patient Disposition: Home - Home Health Services Reason For Visit: SEVERE THROMBOCYTOPENIA,RASH,ESAY BRUISING Discharge Diagnosis: Thrombocytopenia Goals: You have been hospitalized for an acute medical problem. During your stay at [facility], we have made an effort to correct the problem that brought you to the hospital while keeping you as comfortable as possible. Medications were used to bring your condition under control and your discharge instructions will include directions for any medications you should take after leaving the hospital. Please make sure you see your Primary Care Provider as part of your follow up plan. Activity: As commented below Non-emergency contact: Primary Care Provider and Oncologist Call non-emergency contact if: you have any medication questions, your symptoms worsen and you have a fever Follow-up/Referrals: Juan José Ledesma MD [Physician] - Cha Childers PA-C [Primary Care Provider] - Diet: Heart Healthy Ambulatory Orders: Basic Metabolic Panel (Routine) Timeframe: 20231008 Location: Determined by Patient Ordered By: Tonya Woods Complete Blood Count no Diff (Routine) Timeframe: [id number] Location: Determined by Patient Ordered By: Tonya Woods Addtl Attending Provider Instructions: You have been hospitalized for bleeding/low platelets. This was suspected from your BACTRIM use for antibiotic for your foot infection and this has been discontinued and added to your allergy list. You were evaluated by hematology/oncology, Dr Ledesma, and this could be idiopathic (we don't know cause) or more likely from recent antibiotic use. Due to low platelets, you had some bleeding and were provided with blood and platelets as well as high dose steroids and your platelets have responded nicely. You were placed on Protonix twice daily and this will be continue to prevent any bleeding while your body is recovering and you should monitor for any bleeding and return to ER if this occurs, or if your rash worsens, if you are having any shortness of breath, chest pain, or lightheaded/dizziness. You should hold your home omeprazole You were evaluated by therapy and cleared for return home. You completed course of IV antibiotics for your foot and should continue to wear looser shoes w/ good padding. Monitor for any increased redness or pain and alert your doctor if this occurs. You are not being sent home on any further antibiotics at this time. We have held your aspirin and you could resume this per Dr Ledesma, however I would like you to hold it for now until you have repeat labs on Friday to ensure continued improvement and prevent any bleeding. You should NOT take any of your meloxicam (Celebrex) as this is an NSAID and can increase risk of bleeding. Please use Tylenol as needed for joint pain in the meantime. You should have follow up with primary care this upcoming week to monitor your progress. Please follow up with hematology in the next 2-3 weeks or sooner if any issues. Again, please return if you have ANY worsening of your rash, any blood in your urine or stool or for any other symptoms concerning for you. It has been a pleasure being a part of the medical team providing for you while you have been int [facility]. Take care. Pending Studies at Discharge: No Stand-Alone Forms: My [facility] PWR[facility], Smoking Cessation Medications and DC Order Prescriptions: New pantoprazole [Protonix] 40 mg tablet,delayed release (DR/EC) 40 mg PO BID 14 Days Qty: 28 0RF Continued donepezil 5 mg tablet 5 mg PO HS Qty: 30 5RF levothyroxine 50 mcg Tablet 50 mcg PO DAILYBB lisinopril 10 mg Tablet 10 mg PO QAM ezetimibe 10 mg Tablet 10 mg PO HS solifenacin 5 mg Tablet 5 mg PO QAM cyanocobalamin (vitamin B-12) [Vitamin B-12] 1,000 mcg Tablet 1,000 mcg PO QAM allopurinol 100 mg tablet 200 mg PO QAM amlodipine 10 mg tablet 10 mg PO QAM omega [id number]-[id number]-ime-fish oil [Fish Oil] 1,200 (144-216) mg Capsule 1 cap PO QAM Held aspirin 81 mg Tablet,Delayed Release (Dr/Ec) 81 mg PO QAM Hold Instructions: Resume on 10/11/23. please hold until seen by primary care provider Discontinued meloxicam 7.5 mg Tablet 7.5 mg PO QAM omeprazole 20 mg Capsule,Delayed Release(Dr/Ec) 20 mg PO QAM Discharge Orders: Discharge Order (Routine); Ordered 10/05/23 Ordered By: Tonya Woods Admission Data Admit Date/Time: 09/30/23 14:50 Attending Provider: Royce Sorensen Admit Provider: Ravinder Ojeda Primary Care Provider: Cha Childers Other Providers: Juan José Ledesma; Ravinder Ojeda; Kevon Artis; Aguilar Moya Other Interventions: Discharge Summary Assessment (RN) Last Done: 10/05/23 12:30 Supervising Physician Co-Signing Physician Notes The patient was not seen by me. The chart was reviewed. Case discussed with RADHA Moore. Agree with assessment and plan Coding Level of Care Code 14312 INP/OBS DISCH >30 MIN Diagnoses Thrombocytopenia D69.6 Hyperkalemia E87.5 Toe infection L08.9 LEROY (acute kidney injury) N17.9 Dementia F03.90 Hypothyroidism E03.9 HTN (hypertension) I10 Gout M10.9 GERD (gastroesophageal reflux disease) K21.9 Acute idiopathic thrombocytopenic purpura D69.3 Bloody stool K92.1 Anemia D64.9
[2023-10-05 12:25] LABS: Hematocrit (blood only) 29.4 % (37.0-47.0); Hemoglobin 9.9 g/dl (12.0-16.0); Mean Corpuscular Hemoglobin 31.3 pg (25.0-34.0); Mean Corpuscular Hgb Conc 33.7 g/dL (32.0-36.0); Mean Platelet Volume 12.6 fL (9.4-12.4); Nucleated RBC # (auto) 0.22 K/uL (0.00-0.12); Nucleated RBC % (auto) 1.5 %; Platelet Count 68 K/uL (130-400); RDW Coefficient of Variation 14.5 % (11.5-14.5); RDW Standard Deviation 48.3 fL (36.4-46.3); Red Blood Count 3.16 M/uL (4.20-5.40); White Blood Count 14.82 K/ul (4.8-10.8)
--- NOTE | 2023-10-05 16:01 | Communication Note ---
Date of Service: October 05, 2023 After discharge, CM was able to send referral to [facility] as they are the only one who covers [facility]. They will have lab requests as well.
== END 2023-10-05 13:47 | disposition home health service (06) | DRG 813 ==
LOC: ED 11:16 → SUATTDRO 14:50 → EDINP 14:50 → 2S 15:49